=== PATIENT | male | born 1950 | race Caucasian/White ===

== ENCOUNTER 2022-02-09 11:00 | Emergency (ER) | payer OTHER, MEDICARE, MEDICAID ==
[~2022-02-09] VITALS: Ht 170.2 cm; Wt 72.7 kg
[~2022-02-09 11:00] MED LIST: NO HOME MEDS
[2022-02-09 11:27] LABS: BASOPHILS % (AUTO) 0.5 % (0-1); EOSINOPHILS % (AUTO) 0.5 % (0-6); HEMATOCRIT 44.5 % (42.0-52.0); HEMOGLOBIN 15.3 g/dl (14.0-17.9); LYMPHOCYTES # (AUTO) 1.8 X10'3 (1.1-4.8); LYMPHOCYTES % (AUTO) 23.2 % (21-51); MEAN CORPUSCULAR HEMOGLOBIN 30.2 PG (27.0-31.0); MEAN CORPUSCULAR HGB CONC 34.5 g/dL (33.0-36.5); MEAN CORPUSCULAR VOLUME 87.7 FL (78-98); MEAN PLATELET VOLUME 8.5 FL (7.4-10.4); MONOCYTES # (AUTO) 0.6 X10'3 (0-0.9); MONOCYTES % (AUTO) 7.7 % (2-12); NEUTROPHILS # (AUTO) 5.4 X10'3 (1.8-7.7); NEUTROPHILS % (AUTO) 68.1 % (42-75); PLATELET COUNT 258 X10'3 (140-440); RED BLOOD COUNT 5.07 X10'6 (4.70-6.10); RED CELL DISTRIBUTION WIDTH 13.7 % (11.5-14.5); WHITE BLOOD COUNT 7.9 X10'3 (4.5-11.0)
[2022-02-09 11:43] LABS: ALANINE AMINOTRANSFERASE 33 U/L (12-78); ALKALINE PHOSPHATASE 73 IU/L (46-116); ANION GAP 10 (8-16); ASPARTATE AMINO TRANSFERASE 20 U/L (10-37); BILIRUBIN,TOTAL 0.7 MG/DL (0.1-1.0); BLOOD UREA NITROGEN 13 MG/DL (7-18); BUN/CREATININE RATIO 13.4 (5.4-32.0); CALCIUM 8.8 MG/DL (8.5-10.1); CHLORIDE 107 MMOL/L (99-107); CREATININE 0.97 MG/DL (0.60-1.10); ETHANOL < 0.010 GM/DL (0.0-0.010); GLUCOSE 99 MG/DL (70-104); POTASSIUM 4.2 MMOL/L (3.5-5.1); SODIUM 142 MMOL/L (135-145); TOTAL CARBON DIOXIDE 25.1 MMOL/L (24-32); TOTAL PROTEIN 7.9 G/DL (6.4-8.2); eGFR 77 ML/MIN
[2022-02-09 11:53] LABS: URINE AMPHETAMINE SCREEN NEGATIVE (Neg); URINE BARBITUATE SCREEN NEGATIVE (Neg); URINE BENZODIAZEPINES SCREEN NEGATIVE (Neg); URINE CANNABINOID SCREEN NEGATIVE (Neg); URINE COCAINE SCREEN NEGATIVE (Neg); URINE METHADONE SCREEN NEGATIVE (Neg); URINE OPIATE SCREEN NEGATIVE (Neg); URINE PHENCYCLIDINE SCREEN NEGATIVE (Neg)
--- NOTE | 2022-02-09 12:22 | NUR ---
PACKET FAXED TO [facility]
[2022-02-09 13:29] LABS: CLARITY,URINE CLOUDY (Clear); COLOR,URINE YELLOW (Yellow); GLUCOSE, URINE NEGATIVE (Neg); KETONES,URINE 40 mg/dl (Neg); LEUKOCYTE ESTERASE ,URINE NEGATIVE (Neg); NITRITES, URINE NEGATIVE (Neg); OCCULT BLOOD,URINE NEGATIVE (Neg); PROTEIN,URINE NEGATIVE (Neg); UROBILINOGEN,URINE 0.2 E.U/dL (0.2-1.0)
[2022-02-09 13:37] LABS: AMORPHOUS URATES 4+; BACTERIA,URINE NONE SEEN /HPF (Neg); MUCUS STRANDS NONE SEEN /LPF (Neg); RBC,URINE NONE SEEN /HPF (0-2); SQUAMOUS EPITHELIAL CELL,UR NONE SEEN /LPF (FEW); UA COLLECTION TYPE CLN CATCH MIDSTREAM; WBC,URINE NONE SEEN /HPF (0-4)
--- NOTE | 2022-02-09 13:45 | NUR ---
Received the patient from the ED to Bed 20 in Overflow. Patient Interview and 1:1 Patient Assessment completed.
--- NOTE | 2022-02-09 15:45 | NUR ---
Patient c/o of a headache of 7 out of "10" and was medicated with Tylenol. Patient sleeping in bed at this time.
[2022-02-09] MEDS ORDERED: acetaminophen 325mg tablet PO ONE (15:55)
--- NOTE | 2022-02-09 15:56 | NUR ---
Patient c/o headache to primary RN, SPoke with Dr. Rivera regarding this and a request by the patient for tylenol. Dr. Rivera gave verbal order for Tylenol 650 mg PO once now. RN aware of new order.
--- NOTE | 2022-02-09 16:02 | NUR ---
PT. SITTING ON THE EDGE OF BED CRYING. PT. STATES HE HAS A HEADACHE FOR THE PAST WEEK . THIS MACHINE SHOP SUPERVISOR OBTAINED ORDER FOR TYLENOL 650MG PO X 1 DOSE FOR PAIN. STAFF WILL CONTINUE TO MONITOR FOR SAFETY.
--- NOTE | 2022-02-09 16:30 | NUR ---
Patient states "My headache is better. It is now a 4 out of 10." Patient resting in bed and requesting to go to his car to get his hearing aid batteries out of his bag in his car. Informed the patient that Security was called to secure his car, and informed them that per Security, as long as his car is parked in a parking space, and his belongings secure inside, they will not attempt to open it and remove any of his personal items from the car. Patient again informed that if he could go out to his car at this time he would smoke a cigarette while he was out there. Informed the patient that no on could take him out to his car to retrieve his belongings or take the time to have him smoke a cigarette by his personal vehicle.
--- NOTE | 2022-02-09 17:25 | NUR ---
Gave report to [facility] prior to their visit with the patient. Informed staff member of patient interview and report from the ED at time of patient transfer to this unit. [facility] interviewing the patient now at his bedside.
--- NOTE | 2022-02-09 18:43 | NUR ---
Patient received on the unit sitting in bed in no obvious distress. Patient is speaking with mental health clinician. Patient is anxious and hyperverbal.Mental states that she will be putting a mental hold on patient.
--- NOTE | 2022-02-10 01:47 | NUR ---
PATIENT AWAKE AND MAKING FUNNY NOISE, WHEN ASK HIM IF HE IS OK,PATIENT STATES YES. NO IS IN NO OBVIOUS DISTRESS.
--- NOTE | 2022-02-10 03:57 | NUR ---
PATIENT CAME TO NURSING STATION AND SAYING HE IS FUSTRATED WITH HIS LIFE. PATIENT STATES THAT HIS LIFE SUCKS. PATIENT CAME VERY TALKATIVE.
--- NOTE | 2022-02-10 05:23 | NUR ---
PATIENT RESTING IN BED. NO OBVIOUS DISTRESS NOTED. OBSERVATION ONGOING
[2022-02-10 05:30] VITALS: BP 124/73
--- NOTE | 2022-02-10 06:23 | NUR ---
SPOKE WITH GONZÁLEZ FROM [facility], ACCEPTING MD DR. JUNIOR.
--- NOTE | 2022-02-10 06:25 | NUR ---
CALLED [facility] OFFICE TO UPDATE ON PT ACCEPTING STATUS, CALL FORWARDED TO VOICEMAIL. MSG LEFT TO RETURN CALL REGARDING PT ACCEPTENCE TO [facility], WILL ATTEMPT TO SPEAK WITH SOMEONE AROUND 7PM
--- NOTE | 2022-02-10 07:10 | NUR ---
PT REQUESTED TYLENOL FOR NICHOLE, RECEIVED PRN TYLENOL 650MG PO Q 6 HR PRN PAIN VERBAL ORDER FROM ED MD MARTINEZ.
[2022-02-10] MEDS ORDERED: acetaminophen 325mg tablet PO PRN (07:20)
--- NOTE | 2022-02-10 07:27 | NUR ---
SPOKE WITH BILL FROM [facility] AND UPDATED ON PT ACCEPTING STATUS. BILL TO CALL [facility] FOR FURTHER DETAILS AND ARRANGE TRANSPORT.
--- NOTE | 2022-02-10 07:50 | NUR ---
PT TO BE TRANSFERRED TO [facility]. RECEIVED REPORT FROM [facility] OFFICE THAT [facility] [employer] EXAMINER TO ARRIVE AROUND [phone]
--- NOTE | 2022-02-10 08:12 | NUR ---
GAVE NURSE TO NURSE REPORT TO MIR ROSE AT [facility].
== END 2022-02-10 09:56 ==
LOC: ER 11:00
DX: R45.851 Suicidal ideations (principal); Z20.822 Contact with and (suspected) exposure to COVID-19; F32.A Depression, unspecified; E78.00 Pure hypercholesterolemia, unspecified; F17.200 Nicotine dependence, unspecified, uncomplicated
CPT/HCPCS: 36415; 80053; 80305; 80320; 81001; 84443; 85025; 87635; 99285; C9803

== ENCOUNTER 2022-11-05 15:45 | Emergency (ER) | payer OTHER, MEDICARE ==
[~2022-11-05 15:45] MED LIST changes: +ARIP5TAB14 PO; +DIPH50CA36; +MELA5TAB12 PO; +MIRT-116 PO; -NO HOME MEDS; +ROSU10TA2 PO
== END 2022-11-05 18:19 | disposition left against medical advice (07) ==
LOC: ER 15:45
DX: R20.0 Anesthesia of skin (principal); Z53.21 Procedure and treatment not carried out due to patient leaving prior to being seen by health care provider

== ENCOUNTER 2022-11-07 17:09 | Inpatient (IN) | payer OTHER, MEDICARE ==
[~2022-11-07] VITALS: Ht 170.2 cm; Wt 77.6 kg
[2022-11-07 18:33] LABS: CLARITY,URINE CLOUDY (Clear); COLOR,URINE YELLOW (Yellow); GLUCOSE, URINE NEGATIVE (Neg); KETONES,URINE 15 mg/dl (Neg); LEUKOCYTE ESTERASE ,URINE NEGATIVE (Neg); NITRITES, URINE NEGATIVE (Neg); OCCULT BLOOD,URINE NEGATIVE (Neg); PROTEIN,URINE NEGATIVE (Neg)
[2022-11-07 18:39] LABS: UA COLLECTION TYPE CLN CATCH MIDSTREAM
[2022-11-07 18:42] LABS: BACTERIA,URINE FEW /HPF (Neg); RBC,URINE 0-2 /HPF (0-2); SQUAMOUS EPITHELIAL CELL,UR FEW /LPF (FEW); WBC,URINE 0-4 /HPF (0-4)
[2022-11-07 18:43] LABS: AMORPHOUS PHOSPHATES 4+
[2022-11-07 18:49] LABS: URINE AMPHETAMINE SCREEN NEGATIVE (Neg); URINE BARBITUATE SCREEN NEGATIVE (Neg); URINE BENZODIAZEPINES SCREEN NEGATIVE (Neg); URINE CANNABINOID SCREEN NEGATIVE (Neg); URINE COCAINE SCREEN NEGATIVE (Neg); URINE METHADONE SCREEN NEGATIVE (Neg); URINE OPIATE SCREEN NEGATIVE (Neg); URINE PHENCYCLIDINE SCREEN NEGATIVE (Neg)
[2022-11-07 19:04] LABS: BASOPHILS % (AUTO) 0.4 % (0-1); EOSINOPHILS # (AUTO) 0.1 X10'3 (0-0.9); EOSINOPHILS % (AUTO) 0.7 % (0-6); HEMATOCRIT 45.1 % (42.0-52.0); LYMPHOCYTES # (AUTO) 1.9 X10'3 (1.1-4.8); LYMPHOCYTES % (AUTO) 23.7 % (21-51); MEAN CORPUSCULAR HGB CONC 33.3 g/dL (33.0-36.5); MEAN CORPUSCULAR VOLUME 90.1 FL (78-98); MEAN PLATELET VOLUME 9.2 FL (7.4-10.4); MONOCYTES # (AUTO) 0.6 X10'3 (0-0.9); MONOCYTES % (AUTO) 7.5 % (2-12); NEUTROPHILS # (AUTO) 5.5 X10'3 (1.8-7.7); NEUTROPHILS % (AUTO) 67.7 % (42-75); PLATELET COUNT 271 X10'3 (140-440); RED BLOOD COUNT 5.01 X10'6 (4.70-6.10); RED CELL DISTRIBUTION WIDTH 14.2 % (11.5-14.5); WHITE BLOOD COUNT 8.1 X10'3 (4.5-11.0)
[2022-11-07 19:13] LABS: ALANINE AMINOTRANSFERASE 31 U/L (12-78); ALBUMIN 3.8 G/DL (3.4-5.0); ALBUMIN/GLOBULIN RATIO 1.1 (1.1-1.5); ALKALINE PHOSPHATASE 84 IU/L (46-116); ANION GAP 11 (8-16); ASPARTATE AMINO TRANSFERASE 20 U/L (10-37); BILIRUBIN,TOTAL 0.3 MG/DL (0.1-1.0); BLOOD UREA NITROGEN 19 MG/DL (7-18); BUN/CREATININE RATIO 17.6 (5.4-32.0); CHLORIDE 105 MMOL/L (99-107); CREATININE 1.08 MG/DL (0.60-1.10); GLUCOSE 93 MG/DL (70-104); POTASSIUM 3.9 MMOL/L (3.5-5.1); SODIUM 139 MMOL/L (135-145); TOTAL CARBON DIOXIDE 22.8 MMOL/L (24-32); TOTAL PROTEIN 7.3 G/DL (6.4-8.2); eGFR 68 ML/MIN
[2022-11-07 19:23] LABS: ETHANOL < 0.010 GM/DL (0.0-0.010)
[2022-11-07] MEDS ORDERED: acetaminophen 325mg tablet PO ONE (19:40)
[2022-11-07] MEDS: LORazepam 1 MG tablet PO PRN (19:56)
[2022-11-07] MEDS ORDERED: ROSU5TAB PO (20:11)
[2022-11-07] MEDS ORDERED: AMLO5TAB4 PO (20:11)
[2022-11-07] MEDS ORDERED: SERT100T PO (20:11)
[2022-11-07] MEDS ORDERED: MULT-381 PO (20:11)
[2022-11-07] MEDS ORDERED: PRAZ1CAP5 PO (20:11)
[2022-11-07] MEDS ORDERED: QUET50TA PO (20:11)
--- NOTE | 2022-11-07 20:40 | NUR ---
The patient moved to bed 20 to the ER overflow from bed 10. He was cooperative with the move. He complained of high anxiety and a headache and Johana SOTO made aware and orders received. The patient reports that he wants to and he has been having suicidal thoughts. He reports decreased ability to sleep, increased suicidal thoughts, increased anxiety, increasing difficulty to focus. He denies psychotic symptoms.
[2022-11-07] MEDS: prazosin 1mg capsule PO SCH (20:49)
[2022-11-07] MEDS: QUEtiapine 25mg tablet PO SCH (20:49)
[2022-11-07] MEDS ORDERED: atorvastatin 20mg tablet PO SCH (21:00)
--- NOTE | 2022-11-07 21:42 | NUR ---
The patient is resting on his bed.
--- NOTE | 2022-11-07 21:47 | NUR ---
PACKET SENT TO [facility]
--- NOTE | 2022-11-08 00:13 | NUR ---
The patient appears to be sleeping
--- NOTE | 2022-11-08 01:35 | NUR ---
The patient appears to be sleeping
--- NOTE | 2022-11-08 03:41 | NUR ---
The patient appears to be sleeping
--- NOTE | 2022-11-08 05:08 | NUR ---
The patient appears to be sleeping
--- NOTE | 2022-11-08 07:02 | NUR ---
Received report from MIR Roy. Pt resting with eyes closed in bed, appears to be sleeping. Noted rise and fall of chest. No distress noted.
[2022-11-08] MEDS: sertraline 50mg tablet PO SCH (08:39)
[2022-11-08] MEDS: multivitamins, therapeutics tablet PO SCH (08:40)
[2022-11-08] MEDS: amLODIPine 5mg tablet PO SCH (08:40)
--- NOTE | 2022-11-08 08:41 | NUR ---
RN requested tech to retake pt vitals before giving medications. HR87, 126/89, 97%.
--- NOTE | 2022-11-08 09:05 | NUR ---
1:1 done at bedside, medications administered. Pt continues to having feelings of hopelessness/suicide. States he feels safe when he is here but not when he is at home. He states he has been dealing with a bad situation and has been unable to cope with it. Pt did not clarify the exact situation.
[2022-11-08] MEDS: ROSUVASTATIN CALCIUM 5 MG TABLET PO SCH (09:11)
[2022-11-08] MEDS: LORazepam 1 MG tablet PO PRN ×2 (10:46→16:32)
--- NOTE | 2022-11-08 10:47 | NUR ---
Pt approached nurse stating, "im going through some stuff and have bad anxiety and just want to fall asleep and not wake up." PRN ativan administered per pt request.
--- NOTE | 2022-11-08 11:32 | NUR ---
Pt sleeping, noted rise and fall of chest.
--- NOTE | 2022-11-08 11:50 | NUR ---
Pt being seen by [facility].
--- NOTE | 2022-11-08 12:21 | NUR ---
Pt. sitting up, eating breakfast at bedside. Addendum: 11/08/22 at 1309 by [email or web address] eating lunch.
--- NOTE | 2022-11-08 13:09 | NUR ---
Pt resting quietly in bed with eyes closed. Noted rise and fall of chest.
--- NOTE | 2022-11-08 15:13 | NUR ---
Pt approached nurses station requesting prn for anxiety. Pt was told he can have his next ativan at 445pm. Pt was okay with this and returned to bed. He continues to rest quietly with eyes closed on bed.
--- NOTE | 2022-11-08 15:35 | NUR ---
Admission Note: Pt. was admitted from the ER accompanied by Perry and security. Safety check was completed and belongings were inventoried by Perry Matamoros. Pt. is on a 5150 for DTS. Per 5150: Pt. states he is visualizing cutting his wrists with a knife and plans to cut his wrists tonight. He states, "Fighting all day, I can't keep fighting." Pt. reports multiple past suicide attempts by hanging and overdose. Pt. is a patient of the [facility] and called making suicidal statements. Addendum: 11/08/22 at 1724 by Marcia Simon RN Pt. scores as a high suicide risk according to the [place] Suicide Risk Assessment, however he is able to contract for safety while on the unit. This was endorsed to Dr. Lay and Q 15min safety checks were ordered.
--- NOTE | 2022-11-08 15:40 | NUR ---
Pt discharged to [facility], pt ambulated with tech and security. Belongings given to tech.
[2022-11-08] MEDS ORDERED: NICOTINE POLACRILEX 2 MG LOZENGE BC PRN (15:45)
[2022-11-08] MEDS ORDERED: acetaminophen 325mg tablet PO PRN (15:45)
[2022-11-08] MEDS ORDERED: magnesium hydroxide 30ml (MOM) UD suspension PO PRN (15:45)
[2022-11-08] MEDS ORDERED: loperamide 2mg capsule PO PRN (15:45)
[2022-11-08] MEDS ORDERED: mag hydrox/Alum hydrox/simeth 30ml oral suspension PO PRN (15:45)
[2022-11-08 15:54] VITALS: BP 129/80
[2022-11-08] MEDS: acetaminophen 325mg tablet PO PRN (16:32)
[2022-11-08] MEDS ORDERED: BUSP10TA11 PO (17:35)
[2022-11-08 19:00] VITALS: BP 124/82
[2022-11-08] MEDS: QUEtiapine 25mg tablet PO SCH (21:00)
[2022-11-08] MEDS: busPIRone 15mg tablet PO SCH (21:00)
[2022-11-08] MEDS: prazosin 1mg capsule PO SCH (21:00)
--- NOTE | 2022-11-09 04:23 | NUR ---
Nursing Progress Note: Problem : Pt. was admitted from the ER; Pt. is on a 5150 for DTS. Per 5150: Pt. states he is visualizing cutting his wrists with a knife and plans to cut his wrists tonight. He states, "Fighting all day, I can't keep fighting." Pt. reports multiple past suicide attempts by hanging and overdose. [facility] and called making suicidal statements. Interventions : Maintained a safe and supportive environment, provided clear and simple instructions, monitored behaviors and need for intervention, and maintained Q 15min safety checks. Response : Patient is pleasant and cooperative with care; compliant with medication. Patient appears depressed; +SI with a plan to cut his wrists. No apparent delusions expressed. Patient retired to bed early in the shift; observed sleeping and does not appear to be having difficulty. Plan : Patient requires interruption of current crisis and medication adjustment in a safe and therapeutic environment.
[2022-11-09 07:38] VITALS: BP 122/72
[2022-11-09] MEDS: sertraline 50mg tablet PO SCH (08:49)
[2022-11-09] MEDS: busPIRone 15mg tablet PO SCH ×3 (08:50→20:04)
[2022-11-09] MEDS: amLODIPine 5mg tablet PO SCH (08:50)
[2022-11-09] MEDS: multivitamins, therapeutics tablet PO SCH (08:50)
[2022-11-09] MEDS: nicotine 21mg patch - 24 hr TD SCH (08:51)
[2022-11-09] MEDS: ROSUVASTATIN CALCIUM 5 MG TABLET PO SCH (08:51)
[2022-11-09 10:37] LABS: CHOL/HDL RATIO 2.6 (0.00-4.99); CHOLESTEROL 103 MG/DL (0-200); HDL CHOLESTEROL 40 MG/DL (35-60); LDL CHOLESTEROL 53 MG/DL (50-100); TRIGLYCERIDES 69 MG/DL (20-135)
[2022-11-09] MEDS: LORazepam 1 MG tablet PO PRN (10:49)
[2022-11-09 11:23] LABS: HEMOGLOBIN A1C 6.2 % (4.5-6.2)
[2022-11-09] MEDS: diphenhydrAMINE 25mg capsule PO PRN (16:56)
[2022-11-09] MEDS: acetaminophen 325mg tablet PO PRN (16:57)
--- NOTE | 2022-11-09 16:59 | NUR ---
Nursing Progress Note: Problem : Pt. was admitted from the ER; Pt. is on a 5150 for DTS. Per 5150: Pt. states he is visualizing cutting his wrists with a knife and plans to cut his wrists tonight. He states, "Fighting all day, I can't keep fighting." Pt. reports multiple past suicide attempts by hanging and overdose. [facility] and called making suicidal statements. Interventions : Maintained a safe and supportive environment, ensured contract for safety, provided clear and simple instructions, provided active listening and positive encouragement, and maintained Q 15min safety checks. Response : Received pt. sleeping in bed at the beginning of the shift, he was awoken by staff to attend breakfast in the Group Room. Afterwards, pt. retreated back to bed and 1:1 was completed at bedside, pt. presents as cooperative, anxious, guarded, and withdrawn. He exhibits tremors in his bilateral upper extremities which he states are chronic in nature. Pt. currently denies any S/I while on the unit, however states, "'But if I went home, I don't know." He later requested PRN Ativan for anxiety with effectiveness. Pt. isolated in his room throughout the shift, getting up only to attend meals. In the afternoon, PRN Tylenol was administered for a headache along with PRN Benadryl r/t anxiety. Pt's PRN Ativan was changed to Benadryl per Dr. Lay as this is what pt. reports he is prescribed at the [facility] for anxiety. Plan : Pt. requires interruption of current crisis, medication adjustments, and a safe and supportive environment.
[2022-11-09 19:50] VITALS: BP 113/72
[2022-11-09] MEDS: prazosin 1mg capsule PO SCH (20:04)
[2022-11-09] MEDS: QUEtiapine 25mg tablet PO SCH (20:04)
[2022-11-10] MEDS: diphenhydrAMINE 25mg capsule PO PRN ×3 (01:06→17:13)
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
[2022-11-10 08:00] VITALS: BP 117/68
[2022-11-10] MEDS: multivitamins, therapeutics tablet PO SCH (08:23)
[2022-11-10] MEDS: sertraline 50mg tablet PO SCH (08:23)
[2022-11-10] MEDS: nicotine 21mg patch - 24 hr TD SCH (08:24)
[2022-11-10] MEDS: busPIRone 15mg tablet PO SCH ×3 (08:24→20:39)
[2022-11-10] MEDS: ROSUVASTATIN CALCIUM 5 MG TABLET PO SCH (08:24)
[2022-11-10] MEDS: amLODIPine 5mg tablet PO SCH (08:25)
[2022-11-10] MEDS: acetaminophen 325mg tablet PO PRN ×2 (11:59→17:15)
--- NOTE | 2022-11-10 17:33 | NUR ---
Nursing Progress Note: Buster Problem : Pt. was admitted from the ER; Pt. is on a 5150 for DTS. Per 5150: Pt. states he is visualizing cutting his wrists with a knife and plans to cut his wrists tonight. He states, "Fighting all day, I can't keep fighting." Pt. reports multiple past suicide attempts by hanging and overdose. [facility] and called making suicidal statements. Interventions : Maintained a safe and supportive environment, ensured contract for safety, provided clear and simple instructions, provided active listening and positive encouragement, and maintained Q 15min safety checks. Response : Pt. received asleep and awoke to take his medications. Pt. endorses SI stating I had pills and a gun, but they took those so I will use a knife, thats how Ill do it He denies HI, AH, VH and also c/o Hx of enlarged prostate and current urinary frequency with scant urine, but no c/o dysuria; N.O Flomax Qday received, Pt. c/o anxiety X1 and received Benadryl with good results. Pt. ate all meals in the dining room with cohorts and socialized with others throughout shift. Pt. has good hygiene, hair is neatly brushed, and wearing unit scrubs. Plan : Pt. requires interruption of current crisis, medication adjustments, and a safe and supportive environment.
[2022-11-10 19:46] VITALS: BP 121/77
[2022-11-10] MEDS: prazosin 1mg capsule PO SCH (20:39)
[2022-11-10] MEDS: QUEtiapine 25mg tablet PO SCH (20:39)
[2022-11-10] MEDS: tamsulosin 0.4mg capsule PO SCH (20:39)
[2022-11-11] MEDS: diphenhydrAMINE 25mg capsule PO PRN ×3 (01:09→23:54)
--- NOTE | 2022-11-11 02:59 | NUR ---
Nursing Progress Note: Problem : Pt. was admitted from the ER; Pt. is on a 5150 for DTS. Per 5150: Pt. states he is visualizing cutting his wrists with a knife and plans to cut his wrists tonight. He states, "Fighting all day, I can't keep fighting." Pt. reports multiple past suicide attempts by hanging and overdose. [facility] and called making suicidal statements. Interventions : Maintained a safe and supportive environment, provided clear and simple instructions, monitored behaviors and need for intervention, and maintained Q 15min safety checks. Response : Patient is pleasant and cooperative with care; compliant with medication. PRN Benadryl provided. Nicotine patch removed. Patient reports increased thought of SI d/t family member being a staff member. Patient is was unable to be redirected and reports that is what keeps him up at night. Patient continued to explain that he predicted he'd be up thinking about it all night; he was isolative to his room throughout the shift. Observed having difficulty sleeping. Plan : Patient requires interruption of current crisis and medication adjustment in a safe and therapeutic environment.
[2022-11-11 08:00] VITALS: BP 116/76
[2022-11-11] MEDS: nicotine 21mg patch - 24 hr TD SCH (08:00)
[2022-11-11] MEDS: ROSUVASTATIN CALCIUM 5 MG TABLET PO SCH (08:14)
[2022-11-11] MEDS: busPIRone 15mg tablet PO SCH ×3 (08:14→20:36)
[2022-11-11] MEDS: sertraline 50mg tablet PO SCH (08:15)
[2022-11-11] MEDS: amLODIPine 5mg tablet PO SCH (08:15)
[2022-11-11] MEDS: multivitamins, therapeutics tablet PO SCH (08:15)
[2022-11-11] MEDS: acetaminophen 325mg tablet PO PRN ×2 (12:16→17:28)
--- NOTE | 2022-11-11 13:42 | NUR ---
Case Management Spoke with Evonne, CT case packer (ph# [phone]), and requested she cancel Buster's appt tomorrow at the [facility]. Sent requested notes to her as well. AZEEM Buenrostro
--- NOTE | 2022-11-11 13:55 | NUR ---
Case Management Vick reported he has an apartment he can return to upon discharge. He reported he wanted to "clear the air" and wanted clinical writer to let Dr Mari know that he lied when he saw him this morning. Vick reported he has not been sleeping and is still suicidal. Sleep assessment showed he slept 3.[address] Mari. AZEEM Buenrostro
--- NOTE | 2022-11-11 17:33 | NUR ---
Nursing Progress Note: Problem : Pt. was admitted from the ER; Pt. is on a 5150 for DTS. Per 5150: Pt. states he is visualizing cutting his wrists with a knife and plans to cut his wrists tonight. He states, "Fighting all day, I can't keep fighting." Pt. reports multiple past suicide attempts by hanging and overdose. [facility] and called making suicidal statements. Interventions : Maintained a safe and supportive environment, ensured contract for safety, provided clear and simple instructions, provided active listening and positive encouragement, and maintained Q 15min safety checks. Response : 1:1 done at bedside, medications administered. Pt denies SI/HI, A/VH. Pt. stating he is no longer having thoughts or feelings of suicide. At approx. 12:20pm he requested medication for a NICHOLE and Anxiety. Scheduled buspar administered with effective results and Tylenol with effective results. Pt spent the majority of the shift isolating in his room, resting in his bed. Pt did attend meals. Pt requested Tylenol again at 1730 for a NICHOLE, Tylenol administered and pt encouraged to increase his water intake. Pt was also concerned about being unable to sleep tonight. This nurse asked if he told the doctor he was unable to sleep last night and he stated, no, I lied, I told him I slept great because I wanted to get out of here. Pt encouraged to ask for his Benadryl with his scheduled bedtime medications and if he is unable to sleep to request this PRN again. Pt also encouraged to be honest with the psychiatrist here so he can get the proper help he needs. Plan : Pt. requires interruption of current crisis, medication adjustments, and a safe and supportive environment.
[2022-11-11 19:53] VITALS: BP 124/76
[2022-11-11] MEDS: prazosin 1mg capsule PO SCH (20:36)
[2022-11-11] MEDS: QUEtiapine 25mg tablet PO SCH (20:36)
[2022-11-11] MEDS: tamsulosin 0.4mg capsule PO SCH (20:36)
--- NOTE | 2022-11-12 04:33 | NUR ---
Nursing Progress Note: Problem : Pt. was admitted from the ER; Pt. is on a 5150 for DTS. Per 5150: Pt. states he is visualizing cutting his wrists with a knife and plans to cut his wrists tonight. He states, "Fighting all day, I can't keep fighting." Pt. reports multiple past suicide attempts by hanging and overdose. [facility] and called making suicidal statements. Interventions : Maintained a safe and supportive environment, provided clear and simple instructions, monitored behaviors and need for intervention, and maintained Q 15min safety checks. Response : Patient is pleasant and cooperative; compliant with medication. PRN Benadryl with repeat provided. Nicotine patch removed. Patient reports passive SI; "I was really hoping to go home and contemplate how today." He continues to appear paranoid. Patient isolative to his room; observed having difficulty sleeping. Plan : Patient requires interruption of current crisis and medication adjustment in a safe and therapeutic environment.
[2022-11-12 07:54] VITALS: BP 125/78
[2022-11-12] MEDS: ROSUVASTATIN CALCIUM 5 MG TABLET PO SCH (08:00)
[2022-11-12] MEDS: multivitamins, therapeutics tablet PO SCH (08:06)
[2022-11-12] MEDS: sertraline 50mg tablet PO SCH (08:06)
[2022-11-12] MEDS: amLODIPine 5mg tablet PO SCH (08:06)
[2022-11-12] MEDS: busPIRone 15mg tablet PO SCH ×3 (08:06→20:52)
[2022-11-12] MEDS: nicotine 21mg patch - 24 hr TD SCH (08:08)
--- NOTE | 2022-11-12 09:47 | NUR ---
Initial: Pt admit with depression and SI. Currently on a regular diet with slightly fluctuating PO intake however overall eating well with average 74% PO intake throughout LOS. Pt participating in snacks per hot dipper. [facility] 11/10, with PRN bowel care available. No nutrition intervention implemented at this time. Will continue to follow. Recommendations: 1) Continue regular diet 2) Bowel care PRN 3) Weekly scaled weights Addendum: 11/12/22 at [address] Amended: Links added.
[2022-11-12] MEDS: diphenhydrAMINE 25mg capsule PO PRN ×2 (11:25→15:49)
[2022-11-12] MEDS: acetaminophen 325mg tablet PO PRN (17:14)
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
[2022-11-12 19:55] VITALS: BP 124/82
[2022-11-12] MEDS: quetiapine 100mg tablet PO SCH (20:52)
[2022-11-12] MEDS: prazosin 1mg capsule PO SCH (20:52)
[2022-11-12] MEDS: tamsulosin 0.4mg capsule PO SCH (20:52)
--- NOTE | 2022-11-13 02:41 | NUR ---
Nursing Progress Note: Problem : Pt. was admitted from the ER; Pt. is on a 5150 for DTS. Per 5150: Pt. states he is visualizing cutting his wrists with a knife and plans to cut his wrists tonight. He states, "Fighting all day, I can't keep fighting." Pt. reports multiple past suicide attempts by hanging and overdose. [facility] and called making suicidal statements. Interventions : Maintained a safe and supportive environment, provided clear and simple instructions, monitored behaviors and need for intervention, and maintained Q 15min safety checks. Response : Patient is pleasant and cooperative with care; compliant with medication. Quetiapine increased to 100mg HS this shift; no ASE observed. Nicotine patch removed. Patient denies SI, HI, A/VH; no apparent delusions expressed. Patient self isolated to his room; observed sleeping without apparent difficulties. Plan : Patient requires interruption of current crisis and medication adjustment in a safe and therapeutic environment.
[2022-11-13 07:29] VITALS: BP 116/73
[2022-11-13] MEDS: QUEtiapine 25mg tablet PO SCH ×2 (07:47→12:54)
[2022-11-13] MEDS: amLODIPine 5mg tablet PO SCH (07:47)
[2022-11-13] MEDS: busPIRone 15mg tablet PO SCH ×3 (07:47→21:13)
[2022-11-13] MEDS: nicotine 21mg patch - 24 hr TD SCH (07:48)
[2022-11-13] MEDS: sertraline 50mg tablet PO SCH (07:48)
[2022-11-13] MEDS: multivitamins, therapeutics tablet PO SCH (07:50)
[2022-11-13] MEDS: ROSUVASTATIN CALCIUM 5 MG TABLET PO SCH (10:25)
--- NOTE | 2022-11-13 16:46 | NUR ---
Nursing Progress Note: Buster Problem: Pt. was admitted from the ER; Pt. is on a 5150 for DTS. Per 5150: Pt. states he is visualizing cutting his wrists with a knife and plans to cut his wrists tonight. He states, "Fighting all day, I can't keep fighting." Pt. reports multiple past suicide attempts by hanging and overdose. [facility] and called making suicidal statements. Interventions: Maintained a safe and supportive environment, ensured contract for safety, provided clear and simple instructions, provided active listening and positive encouragement, and maintained Q 15min safety checks. Response: Pt. received asleep and awoke to take his medications. Pt. denies SI, HI, AH, VH, and reports I feel great he also stated he slept well last night. He attended group this morning and stayed in community room to socialize with cohorts afterward. Pt. ate all meals in the dining room, and did not c/o anxiety this shift. Pt. has fair hygiene, stubbly kincaid and is wearing unit scrubs. Plan: Pt. requires interruption of current crisis, medication adjustments, and a safe and supportive environment.
[2022-11-13] MEDS: diphenhydrAMINE 25mg capsule PO PRN (19:08)
[2022-11-13 19:38] VITALS: BP 148/88
[2022-11-13] MEDS: prazosin 1mg capsule PO SCH (21:13)
[2022-11-13] MEDS: tamsulosin 0.4mg capsule PO SCH (21:13)
[2022-11-13] MEDS: quetiapine 100mg tablet PO SCH (21:13)
--- NOTE | 2022-11-14 02:34 | NUR ---
Nursing Progress Note: Problem : Pt. was admitted from the ER; Pt. is on a 5150 for DTS. Per 5150: Pt. states he is visualizing cutting his wrists with a knife and plans to cut his wrists tonight. He states, "Fighting all day, I can't keep fighting." Pt. reports multiple past suicide attempts by hanging and overdose. [facility] and called making suicidal statements. Interventions : Maintained a safe and supportive environment, provided clear and simple instructions, monitored behaviors and need for intervention, and maintained Q 15min safety checks. Response : Patient is pleasant and cooperative with care; compliant with medication. PRN Benadryl provided. Nicotine patch removed. Patient explained he'll "always have the intrusive thoughts [SI] but no longer feeling the urge to do it." Denies HI, A/VH. Patient expressed he got peace of mind with relative that works on the floor reassuring him his information is private. He appeared cheerful and bright this shift. Patient retired to bed early; observed sleeping with no apparent difficulties. Plan : Patient requires interruption of current crisis and medication adjustment in a safe and therapeutic environment.
[2022-11-14 07:30] VITALS: BP 112/71
[2022-11-14] MEDS: QUEtiapine 25mg tablet PO SCH ×2 (08:15→12:22)
[2022-11-14] MEDS: nicotine 21mg patch - 24 hr TD SCH (08:15)
[2022-11-14] MEDS: amLODIPine 5mg tablet PO SCH (08:16)
[2022-11-14] MEDS: ROSUVASTATIN CALCIUM 5 MG TABLET PO SCH (08:16)
[2022-11-14] MEDS: busPIRone 15mg tablet PO SCH ×3 (08:16→20:49)
[2022-11-14] MEDS: multivitamins, therapeutics tablet PO SCH (08:17)
[2022-11-14] MEDS: sertraline 50mg tablet PO SCH (08:17)
--- NOTE | 2022-11-14 09:54 | NUR ---
Met with Vick and he reported he is feeling better. He reported he slept well the last two nights. He denied any current SI. He reported he lives alone and can return to his apartment. He reported he went to group yesterday. Encouraged him to go to group today as well. WANDER Douglass (ph# [phone]), called for an update. Informed her of Vick's progress. She will check in again tomorrow. Will discuss ETA for discharge with Dr Jess retana. AZEEM Buenrostro
--- NOTE | 2022-11-14 13:37 | NUR ---
5250 upheld for DTS
[2022-11-14] MEDS: diphenhydrAMINE 25mg capsule PO PRN (16:14)
[2022-11-14] MEDS: acetaminophen 325mg tablet PO PRN (16:15)
--- NOTE | 2022-11-14 17:16 | NUR ---
Nursing Note Problem: Pt. was admitted from the ER; Pt. is on a 5150 for DTS. Per 5150: Pt. states he is visualizing cutting his wrists with a knife and plans to cut his wrists tonight. He states, "Fighting all day, I can't keep fighting." Pt. reports multiple past suicide attempts by hanging and overdose. [facility] and [facility] making [facility] statements. Interventions: Maintained a safe and supportive environment, ensured contract for safety, provided clear and simple instructions, provided active listening and positive encouragement, and maintained Q 15min safety checks. Response: Pt. received asleep and took medication in community room during breakfast. Pt. denies SI, HI, AH, VH, stating I feel much better. Pt. ate all meals in the dining room, and did not c/o anxiety in AM. Pt had hearing today, and was upset d/t hearing chart notes read out loud. Pt spoke with MD, pt expressed decreased anxiety after conversation. Pt ate lunch in community room, after initially refusing. Pt napped for most of afternoon/early evening. PRN Benadryl/Tylenol given 1615 with good effect. Pt. has fair hygiene, stubbly kincaid and is wearing unit scrubs. Plan: Pt. requires interruption of current crisis, medication adjustments, and a safe and supportive environment.
[2022-11-14 19:00] VITALS: BP 126/74
[2022-11-14] MEDS: tamsulosin 0.4mg capsule PO SCH (20:48)
[2022-11-14] MEDS: prazosin 1mg capsule PO SCH (20:49)
[2022-11-14] MEDS: quetiapine 100mg tablet PO SCH (20:49)
[2022-11-15] MEDS: QUEtiapine 25mg tablet PO PRN (02:24)
--- NOTE | 2022-11-15 06:00 | NUR ---
Nursing Progress Note: Problem : Pt. was admitted from the ER; Pt. is on a 5150 for DTS. Per 5150: Pt. states he is visualizing cutting his wrists with a knife and plans to cut his wrists tonight. He states, "Fighting all day, I can't keep fighting." Pt. reports multiple past suicide attempts by hanging and overdose. [facility] and called making suicidal statements. Interventions : Maintained a safe and supportive environment, provided clear and simple instructions, monitored behaviors and need for intervention, and maintained Q 15min safety checks. Response : Patient is pleasant and cooperative with care; compliant with medication. PRN Quetiapine provided and Nicotine patch removed. Patient denies SI, HI, A/VH; no apparent delusions expressed. Patient mostly isolated to his room this shift; only comes out to request medication. Patient observed sleeping with some interruption. Plan : Patient requires interruption of current crisis and medication adjustment in a safe and therapeutic environment.
[2022-11-15] MEDS: busPIRone 15mg tablet PO SCH ×3 (07:34→20:27)
[2022-11-15] MEDS: amLODIPine 5mg tablet PO SCH (07:34)
[2022-11-15] MEDS: QUEtiapine 25mg tablet PO SCH ×2 (07:36→12:47)
[2022-11-15] MEDS: multivitamins, therapeutics tablet PO SCH (07:36)
[2022-11-15] MEDS: sertraline 50mg tablet PO SCH (07:37)
[2022-11-15] MEDS: nicotine 21mg patch - 24 hr TD SCH (07:38)
[2022-11-15 08:35] VITALS: BP 119/70
[2022-11-15] MEDS: ROSUVASTATIN CALCIUM 5 MG TABLET PO SCH (08:41)
--- NOTE | 2022-11-15 17:17 | NUR ---
Nursing Note Problem: Pt. was admitted from the ER; Pt. is on a 5150 for DTS. Per 5150: Pt. states he is visualizing cutting his wrists with a knife and plans to cut his wrists tonight. He states, "Fighting all day, I can't keep fighting." Pt. reports multiple past suicide attempts by hanging and overdose. [facility] and called making suicidal statements. Interventions: Maintained a safe and supportive environment, ensured contract for safety, provided clear and simple instructions, provided active listening and positive encouragement, and maintained Q 15min safety checks. Response: received patient asleep. Patient seen by medical doctor at 0730 during medication pass. He took all oral meds without hesitation. Refused habitrol patch this morning 11/15/22. Patient denies thoughts of SI, AH, and VH . Patient did not want to eat breakfast this morning. He has been in his room sleeping. 1130 patient seen walking down the [place] with blanket over shoulder and asked for coffee. 1145 patient seen sitting quietly in rec room watching TV alone. Observed patient heading to community room for lunch. Overall patient was pleasant, quiet and interacting. Plan: Pt. requires interruption of current crisis, medication adjustments, and a safe and supportive environment.
[2022-11-15] MEDS: diphenhydrAMINE 25mg capsule PO PRN (17:39)
[2022-11-15 19:42] VITALS: BP 130/76
[2022-11-15] MEDS: tamsulosin 0.4mg capsule PO SCH (20:27)
[2022-11-15] MEDS: prazosin 1mg capsule PO SCH (20:27)
[2022-11-15] MEDS: quetiapine 100mg tablet PO SCH (20:27)
--- NOTE | 2022-11-16 05:24 | NUR ---
Nursing Progress Note: Problem : Pt. was admitted from the ER; Pt. is on a 5150 for DTS. Per 5150: Pt. states he is visualizing cutting his wrists with a knife and plans to cut his wrists tonight. He states, "Fighting all day, I can't keep fighting." Pt. reports multiple past suicide attempts by hanging and overdose. [facility] and called making suicidal statements. Interventions : Maintained a safe and supportive environment, provided clear and simple instructions, monitored behaviors and need for intervention, and maintained Q 15min safety checks. Response : Patient is pleasant and cooperative with care; compliant with medication. He continues to deny SI, HI, A/VH; no apparent delusions expressed. Patient mostly isolative to room; provided HS snack prior to bed; observed sleeping and does not appear to be having difficulty. Plan : Patient requires interruption of current crisis and medication adjustment in a safe and therapeutic environment.
[2022-11-16] MEDS: ROSUVASTATIN CALCIUM 5 MG TABLET PO SCH (07:39)
[2022-11-16] MEDS: amLODIPine 5mg tablet PO SCH (07:39)
[2022-11-16] MEDS: sertraline 50mg tablet PO SCH (07:39)
[2022-11-16] MEDS: QUEtiapine 25mg tablet PO SCH ×2 (07:39→12:47)
[2022-11-16] MEDS: busPIRone 15mg tablet PO SCH ×3 (07:40→21:01)
[2022-11-16] MEDS: multivitamins, therapeutics tablet PO SCH (07:40)
[2022-11-16] MEDS: nicotine 21mg patch - 24 hr TD SCH (07:40)
[2022-11-16 08:29] VITALS: BP 117/69
[2022-11-16] MEDS: diphenhydrAMINE 25mg capsule PO PRN ×2 (15:24→23:26)
--- NOTE | 2022-11-16 17:29 | NUR ---
Nursing Progress Note: Problem : Pt. was admitted from the ER; Pt. is on a 5150 for DTS. Per 5150: Pt. states he is visualizing cutting his wrists with a knife and plans to cut his wrists tonight. He states, "Fighting all day, I can't keep fighting." Pt. reports multiple past suicide attempts by hanging and overdose. [facility] and called making suicidal statements. Interventions : Maintained a safe and supportive environment, provided clear and simple instructions, monitored behaviors and need for intervention, and maintained Q 15min safety checks. Response : Patient was up for breakfast, and was compliant with morning med pass. He heads back to his room where he is happy to isolate. Patient is calm, cooperative, but quiet. He is not known to socialize with his peers when in the community room. Patients mood is good and affect is bright. He continues to wait for placement. Plan : Patient requires interruption of current crisis and medication adjustment in a safe and therapeutic environment.
[2022-11-16 19:00] VITALS: BP 132/75
[2022-11-16] MEDS: prazosin 1mg capsule PO SCH (21:01)
[2022-11-16] MEDS: tamsulosin 0.4mg capsule PO SCH (21:01)
[2022-11-16] MEDS: quetiapine 100mg tablet PO SCH (21:01)
[2022-11-16] MEDS: QUEtiapine 25mg tablet PO PRN (23:26)
--- NOTE | 2022-11-17 03:14 | NUR ---
Nursing Progress Note: Problem : Pt. was admitted from the ER; Pt. is on a 5150 for DTS. Per 5150: Pt. states he is visualizing cutting his wrists with a knife and plans to cut his wrists tonight. He states, "Fighting all day, I can't keep fighting." Pt. reports multiple past suicide attempts by hanging and overdose. [facility] and called making suicidal statements. Interventions : Maintained a safe and supportive environment, provided clear and simple instructions, monitored behaviors and need for intervention, and maintained Q 15min safety checks. Response : Patient is pleasant and cooperative with care; compliant with medication. PRNs Quetiapine and Benadryl provided. He denies MH Sx but later reported increased anxiety and difficulty sleeping d/t "thoughts." Patient did not elaborate on his "thoughts." He briefly participated in HS snack prior to bed; observed sleeping and does not appear to be having difficulty. Plan : Patient requires interruption of current crisis and medication adjustment in a safe and therapeutic environment.
[2022-11-17 08:00] VITALS: BP 127/73
[2022-11-17] MEDS: QUEtiapine 25mg tablet PO SCH ×2 (08:15→12:54)
[2022-11-17] MEDS: busPIRone 15mg tablet PO SCH ×3 (08:15→21:00)
[2022-11-17] MEDS: multivitamins, therapeutics tablet PO SCH (08:16)
[2022-11-17] MEDS: ROSUVASTATIN CALCIUM 5 MG TABLET PO SCH (08:16)
[2022-11-17] MEDS: sertraline 50mg tablet PO SCH (08:16)
[2022-11-17] MEDS: amLODIPine 5mg tablet PO SCH (08:16)
[2022-11-17] MEDS: nicotine 21mg patch - 24 hr TD SCH (08:17)
--- NOTE | 2022-11-17 17:46 | NUR ---
Nursing Note Problem: Pt. was admitted from the ER; Pt. is on a 5150 for DTS. Per 5150: Pt. states he is visualizing cutting his wrists with a knife and plans to cut his wrists tonight. He states, "Fighting all day, I can't keep fighting." Pt. reports multiple past suicide attempts by hanging and overdose. [facility] and called making suicidal statements. Interventions: Maintained a safe and supportive environment, ensured contract for safety, provided clear and simple instructions, provided active listening and positive encouragement, and maintained Q 15min safety checks. Response: Received patient sleeping in bed at change of shift. Patient attends all meals in the group room, then retreats to his room and self-isolates. Patient denies all psychotic symptoms. Patient takes medications as directed. Patient is pleasant and compliant with treatment. Plan: Pt. requires interruption of current crisis, medication adjustments, and a safe and supportive environment.
[2022-11-17 19:53] VITALS: BP 123/73
[2022-11-17] MEDS: prazosin 1mg capsule PO SCH (21:00)
[2022-11-17] MEDS: tamsulosin 0.4mg capsule PO SCH (21:00)
[2022-11-17] MEDS: quetiapine 100mg tablet PO SCH (21:01)
[2022-11-17] MEDS: QUEtiapine 25mg tablet PO PRN (22:16)
[2022-11-17] MEDS: diphenhydrAMINE 25mg capsule PO PRN (22:16)
--- NOTE | 2022-11-18 05:12 | NUR ---
Nursing Progress Note: Problem : Pt. was admitted from the ER; Pt. is on a 5150 for DTS. Per 5150: Pt. states he is visualizing cutting his wrists with a knife and plans to cut his wrists tonight. He states, "Fighting all day, I can't keep fighting." Pt. reports multiple past suicide attempts by hanging and overdose. [facility] and called making suicidal statements. Interventions : Maintained a safe and supportive environment, provided clear and simple instructions, monitored behaviors and need for intervention, and maintained Q 15min safety checks. Response : Patient is irritable and guarded this shift; compliant with medication. PRN Quetiapine and Benadryl provided. He denied SI, HI, A/VH to process description writer but a peer reported he was explaining he was going to cheek medication, place it under his mattress and planned to OD when he had enough. Multimedia Authoring Specialist and PCT checked under his mattress (nothing found) and patient did not appear to cheek his medication. He was over heard crying in his room and refused to talk with process description writer. He's observed sleeping and does not appear to be having difficulty. Plan : Patient requires interruption of current crisis and medication adjustment in a safe and therapeutic environment.
[2022-11-18 07:30] VITALS: BP 119/68
[2022-11-18] MEDS: ROSUVASTATIN CALCIUM 5 MG TABLET PO SCH (08:20)
[2022-11-18] MEDS: QUEtiapine 25mg tablet PO SCH ×2 (08:20→12:10)
[2022-11-18] MEDS: amLODIPine 5mg tablet PO SCH (08:20)
[2022-11-18] MEDS: multivitamins, therapeutics tablet PO SCH (08:20)
[2022-11-18] MEDS: sertraline 50mg tablet PO SCH (08:20)
[2022-11-18] MEDS: busPIRone 15mg tablet PO SCH ×3 (08:20→21:00)
[2022-11-18] MEDS: diphenhydrAMINE 25mg capsule PO PRN (12:04)
--- NOTE | 2022-11-18 17:48 | NUR ---
Nursing Note Problem: Pt. was admitted from the ER; Pt. is on a 5150 for DTS. Per 5150: Pt. states he is visualizing cutting his wrists with a knife and plans to cut his wrists tonight. He states, "Fighting all day, I can't keep fighting." Pt. reports multiple past suicide attempts by hanging and overdose. [facility] and called making suicidal statements. Interventions: Maintained a safe and supportive environment, ensured contract for safety, provided clear and simple instructions, provided active listening and positive encouragement, and maintained Q 15min safety checks. Response: Received patient from CN @ 0336. Patient attends all meals in the group room, then retreats to his room and self-isolates. Patient denies all psychotic symptoms. HR RRR, LCTA, BS +4 quads, cap refill < 3 seconds, PERRLA, - Homans, denies SI/HI/AH/VH, denies depression, endorses some anxiety. Pt states he has improved since being admitted. States he thought he was going to DC today, but is unsure. Per MD, pt to DC 11/19/2022 after all f/u appointments are made. PRN Benadryl given for c/o anxiety at 1205. Patient takes medications as directed. Patient is pleasant and compliant with treatment. Plan: Pt. requires interruption of current crisis, medication adjustments, and a safe and supportive environment. Per MD, patient to DC 11/19/2022.
[2022-11-18 19:00] VITALS: BP 135/90
[2022-11-18] MEDS: tamsulosin 0.4mg capsule PO SCH (21:00)
[2022-11-18] MEDS: prazosin 1mg capsule PO SCH (21:00)
[2022-11-18] MEDS: quetiapine 100mg tablet PO SCH (21:00)
--- NOTE | 2022-11-19 04:29 | NUR ---
Nursing Progress Note: Problem : Pt. was admitted from the ER; Pt. is on a 5150 for DTS. Per 5150: Pt. states he is visualizing cutting his wrists with a knife and plans to cut his wrists tonight. He states, "Fighting all day, I can't keep fighting." Pt. reports multiple past suicide attempts by hanging and overdose. [facility] and called making suicidal statements. Interventions : Maintained a safe and supportive environment, provided clear and simple instructions, monitored behaviors and need for intervention, and maintained Q 15min safety checks. Response : Patient is guarded, real short with curriculum writer, but cooperative; compliant with medication. Patient denies SI, HI, A/VH; no apparent delusions expressed. Patient reports he is looking forward to discharge 11/19. He mostly self isolated to his room, received HS snack and promptly returned to bed; observed sleeping and does not appear to be having difficulty. Plan : Patient requires interruption of current crisis and medication adjustment in a safe and therapeutic environment.
--- NOTE | 2022-11-19 07:20 | NUR ---
Reassessment; pt continues on Regular diet w/ mostly 100% intake of meals recently, meeting est needs at this time. LB 11/17. No nutrition intervention implemented at this time, will continue to monitor. Recommendations: 1) Continue regular diet 2) Bowel care PRN 3) Weekly scaled weights Addendum: 11/19/22 at [address] Amended: Links added.
[2022-11-19 07:30] VITALS: BP 103/69
[2022-11-19] MEDS: QUEtiapine 25mg tablet PO SCH ×2 (07:45→12:26)
[2022-11-19] MEDS: busPIRone 15mg tablet PO SCH ×2 (07:45→12:26)
[2022-11-19] MEDS: ROSUVASTATIN CALCIUM 5 MG TABLET PO SCH (07:45)
[2022-11-19] MEDS: multivitamins, therapeutics tablet PO SCH (07:46)
[2022-11-19] MEDS: sertraline 50mg tablet PO SCH (07:46)
[2022-11-19] MEDS: amLODIPine 5mg tablet PO SCH (07:46)
[2022-11-19 08:00] VITALS: BP 103/69
[2022-11-19] MEDS ORDERED: QUET100T34 PO (13:28)
[2022-11-19] MEDS ORDERED: NOR5T PO (13:28)
[2022-11-19] MEDS ORDERED: ROSU5TAB PO (13:28)
[2022-11-19] MEDS ORDERED: NICO-907 BC (13:28)
[2022-11-19] MEDS ORDERED: SERT-433 PO (13:28)
[2022-11-19] MEDS ORDERED: PRAZ1CAP5 PO (13:28)
[2022-11-19] MEDS ORDERED: tamsulosin capsule PO (13:28)
[2022-11-19] MEDS ORDERED: MULT-25 PO (13:28)
[2022-11-19] MEDS ORDERED: BUSP15TA3 PO (13:28)
[2022-11-19] MEDS ORDERED: QUET25TA36 PO (13:29)
--- NOTE | 2022-11-19 14:45 | NUR ---
Discharge Note Pt discharged to home @ 1445. Escorted to lobby/taxi by security. Pt expressed understanding of discharge instructions, prescriptions, follow-up appointments scheduled, and mental health resources. All belongings accounted for and returned to pt.
== END 2022-11-19 14:45 | disposition home or self-care (01) | DRG 885 ==
LOC: ER 17:11 → ED HOLD 11-08 14:30 → ADULT MH 11-08 15:37
PROVIDERS: ADMIT Psychiatry & Neurology Psychiatry; ATTEND Psychiatry & Neurology Psychiatry
DX: F33.2 Major depressive disorder, recurrent severe without psychotic features (principal); R45.851 Suicidal ideations; E78.00 Pure hypercholesterolemia, unspecified; F17.210 Nicotine dependence, cigarettes, uncomplicated; F43.12 Post-traumatic stress disorder, chronic; Z20.822 Contact with and (suspected) exposure to COVID-19; F41.9 Anxiety disorder, unspecified; F60.7 Dependent personality disorder; I10 Essential (primary) hypertension; N40.0 Benign prostatic hyperplasia without lower urinary tract symptoms; Z79.899 Other long term (current) drug therapy; Z82.3 Family history of stroke; Z83.3 Family history of diabetes mellitus; Z71.6 Tobacco abuse counseling
CPT/HCPCS: 36415; 80053; 80061; 80305; 80320; 81001; 83036; 84443; 85025; 87081; 87811; 99285; Q0163

== ENCOUNTER 2022-11-20 20:25 | Emergency (ER) | payer OTHER, MEDICARE ==
[~2022-11-20] VITALS: Ht 170.2 cm; Wt 78.6 kg
[~2022-11-20 20:25] MED LIST changes: -ARIP5TAB14 PO; +BUSP15TA3 PO; -DIPH50CA36; -MELA5TAB12 PO; -MIRT-116 PO; +MULT-25 PO; +NICO-907 BC; +NOR5T PO; +PRAZ1CAP5 PO; +QUET100T34 PO; +QUET25TA36 PO; -ROSU10TA2 PO; +ROSU5TAB PO; +SERT-433 PO; +tamsulosin capsule PO
[2022-11-20 20:31] VITALS: BP 172/94
[2022-11-20 21:10] LABS: BASOPHILS % (AUTO) 0.3 % (0-1); EOSINOPHILS % (AUTO) 0.3 % (0-6); HEMATOCRIT 45.5 % (42.0-52.0); HEMOGLOBIN 15.2 g/dl (14.0-17.9); LYMPHOCYTES # (AUTO) 1.1 X10'3 (1.1-4.8); LYMPHOCYTES % (AUTO) 9.7 % (21-51); MEAN CORPUSCULAR HGB CONC 33.5 g/dL (33.0-36.5); MEAN CORPUSCULAR VOLUME 89.4 FL (78-98); MEAN PLATELET VOLUME 8.5 FL (7.4-10.4); MONOCYTES # (AUTO) 0.8 X10'3 (0-0.9); MONOCYTES % (AUTO) 7.5 % (2-12); NEUTROPHILS # (AUTO) 9.2 X10'3 (1.8-7.7); NEUTROPHILS % (AUTO) 82.2 % (42-75); PLATELET COUNT 249 X10'3 (140-440); RED BLOOD COUNT 5.09 X10'6 (4.70-6.10); RED CELL DISTRIBUTION WIDTH 14.1 % (11.5-14.5); WHITE BLOOD COUNT 11.2 X10'3 (4.5-11.0)
[2022-11-20 21:23] LABS: ALANINE AMINOTRANSFERASE 45 U/L (12-78); ALBUMIN 4.2 G/DL (3.4-5.0); ALBUMIN/GLOBULIN RATIO 1.2 (1.1-1.5); ALKALINE PHOSPHATASE 90 IU/L (46-116); ANION GAP 9 (8-16); ASPARTATE AMINO TRANSFERASE 25 U/L (10-37); BILIRUBIN,TOTAL 0.3 MG/DL (0.1-1.0); BLOOD UREA NITROGEN 14 MG/DL (7-18); BUN/CREATININE RATIO 11.5 (5.4-32.0); CALCIUM 9.2 MG/DL (8.5-10.1); CHLORIDE 105 MMOL/L (99-107); CREATININE 1.22 MG/DL (0.60-1.10); GLUCOSE 186 MG/DL (70-104); POTASSIUM 4.2 MMOL/L (3.5-5.1); SODIUM 143 MMOL/L (135-145); TOTAL PROTEIN 7.7 G/DL (6.4-8.2); eGFR 59 ML/MIN
[2022-11-20 21:27] LABS: ETHANOL < 0.010 GM/DL (0.0-0.010)
== END 2022-11-21 00:11 | disposition left against medical advice (07) ==
LOC: ER 20:25
DX: F29 Unspecified psychosis not due to a substance or known physiological condition (principal); Z20.822 Contact with and (suspected) exposure to COVID-19; Z53.21 Procedure and treatment not carried out due to patient leaving prior to being seen by health care provider
CPT/HCPCS: 36415; 80053; 80320; 85025; 87811

== ENCOUNTER 2023-03-17 15:49 | Emergency (ER) | payer OTHER, MEDICARE ==
[~2023-03-17] VITALS: Ht 170.2 cm; Wt 77.3 kg
--- NOTE | 2023-03-17 16:28 | NUR ---
ER registration came here to take patient's wallent with money, keys, paperwork.
--- NOTE | 2023-03-17 16:44 | NUR ---
Patient's own meds turned in to the hospital pharmacy with patient permission
[2023-03-17 17:22] LABS: CLARITY,URINE CLEAR (Clear); COLOR,URINE YELLOW (Yellow); GLUCOSE, URINE NEGATIVE (Neg); KETONES,URINE NEGATIVE (Neg); LEUKOCYTE ESTERASE ,URINE NEGATIVE (Neg); NITRITES, URINE NEGATIVE (Neg); OCCULT BLOOD,URINE NEGATIVE (Neg); PH,URINE 5.5 (4.8-8.0); PROTEIN,URINE NEGATIVE (Neg); UROBILINOGEN,URINE 0.2 E.U/dL (0.2-1.0)
[2023-03-17 17:23] LABS: UA COLLECTION TYPE CLN CATCH MIDSTREAM
[2023-03-17 17:24] LABS: BASOPHILS # (AUTO) 0.1 X10'3 (0-0.2); BASOPHILS % (AUTO) 0.8 % (0-1); EOSINOPHILS # (AUTO) 0.1 X10'3 (0-0.9); EOSINOPHILS % (AUTO) 0.8 % (0-6); HEMATOCRIT 43.5 % (42.0-52.0); HEMOGLOBIN 14.7 g/dl (14.0-17.9); LYMPHOCYTES # (AUTO) 1.6 X10'3 (1.1-4.8); LYMPHOCYTES % (AUTO) 22.6 % (21-51); MEAN CORPUSCULAR HEMOGLOBIN 29.2 PG (27.0-31.0); MEAN CORPUSCULAR HGB CONC 33.8 g/dL (33.0-36.5); MEAN CORPUSCULAR VOLUME 86.3 FL (78-98); MEAN PLATELET VOLUME 8.3 FL (7.4-10.4); MONOCYTES # (AUTO) 0.6 X10'3 (0-0.9); MONOCYTES % (AUTO) 8.4 % (2-12); NEUTROPHILS # (AUTO) 4.9 X10'3 (1.8-7.7); NEUTROPHILS % (AUTO) 67.4 % (42-75); PLATELET COUNT 228 X10'3 (140-440); RED BLOOD COUNT 5.04 X10'6 (4.70-6.10); RED CELL DISTRIBUTION WIDTH 14.6 % (11.5-14.5); WHITE BLOOD COUNT 7.2 X10'3 (4.5-11.0)
--- NOTE | 2023-03-17 17:31 | NUR ---
Dr. Wesley talking to the patient currently.
[2023-03-17 17:34] LABS: ALANINE AMINOTRANSFERASE 39 U/L (12-78); ALBUMIN 4.1 G/DL (3.4-5.0); ALBUMIN/GLOBULIN RATIO 1.2 (1.1-1.5); ALKALINE PHOSPHATASE 69 IU/L (46-116); ANION GAP 9 (8-16); ASPARTATE AMINO TRANSFERASE 26 U/L (10-37); BILIRUBIN,TOTAL 0.4 MG/DL (0.1-1.0); BLOOD UREA NITROGEN 13 MG/DL (7-18); BUN/CREATININE RATIO 13.5 (10.0-20.0); CHLORIDE 106 MMOL/L (99-107); CREATININE 0.96 MG/DL (0.60-1.10); GLUCOSE 93 MG/DL (70-104); POTASSIUM 4.2 MMOL/L (3.5-5.1); SODIUM 140 MMOL/L (135-145); TOTAL CARBON DIOXIDE 25.5 MMOL/L (24-32); TOTAL PROTEIN 7.6 G/DL (6.4-8.2); eGFR 77 ML/MIN
[2023-03-17 17:41] LABS: URINE AMPHETAMINE SCREEN NEGATIVE (Neg); URINE BARBITUATE SCREEN NEGATIVE (Neg); URINE BENZODIAZEPINES SCREEN NEGATIVE (Neg); URINE CANNABINOID SCREEN NEGATIVE (Neg); URINE COCAINE SCREEN NEGATIVE (Neg); URINE METHADONE SCREEN NEGATIVE (Neg); URINE OPIATE SCREEN NEGATIVE (Neg); URINE PHENCYCLIDINE SCREEN NEGATIVE (Neg)
[2023-03-17 17:45] LABS: ETHANOL < 0.010 GM/DL (0.0-0.010)
--- NOTE | 2023-03-17 17:54 | NUR ---
Patient admitted that he still has suicidal thoughts and has specific plan. When I asked him about the plan, he said I want to overdose myself!"
[2023-03-17 19:14] LABS: ACETAMINOPHEN < 2.0 UG/ML (10-30)
[2023-03-17] MEDS ORDERED: acetaminophen 325mg tablet PO ONE (21:20)
[2023-03-17] MEDS ORDERED: LORazepam 1 MG tablet PO ONE (21:20)
--- NOTE | 2023-03-18 01:25 | NUR ---
Report given to MIR Hillman
--- NOTE | 2023-03-18 01:31 | NUR ---
While Kady, MIR transporting another pt upstairs; Pt observed to be rubbing his urinal against wrist; Superficial abrasion observed to right wrist area; No bleeding to site at this time; Urinal removed from pt and MIR Hillman notified upon return to ED
--- NOTE | 2023-03-18 03:59 | NUR ---
pt. sleeping quietly on ED gurney without distress.
[2023-03-18] MEDS ORDERED: LORazepam 1 MG tablet PO ONE ×2 (04:45→18:40)
--- NOTE | 2023-03-18 09:00 | NUR ---
Report given to MIR Peralta in Overflow. Pt to go to bed 26.
--- NOTE | 2023-03-18 10:04 | NUR ---
pt is sleeping and resting supine.
--- NOTE | 2023-03-18 10:25 | NUR ---
ELI, Nithya, evaluating patient. No distress observed. Continue to monitor.
--- NOTE | 2023-03-18 12:10 | NUR ---
Patient eating lunch. No distress observed. Continue to monitor.
--- NOTE | 2023-03-18 14:10 | NUR ---
Patient was c/o NICHOLE and anxiety. RN received a verbal order for meds but when RN went to patient, patient was sleeping. Continue to monitor.
[2023-03-18] MEDS ORDERED: acetaminophen 325mg tablet PO PRN (14:15)
[2023-03-18] MEDS: LORazepam 1 MG tablet PO PRN (15:02)
--- NOTE | 2023-03-18 16:21 | NUR ---
patient came to me and let me know he has both hearing aides in his ear and has to keep them. patient also has partial dentures in his mouth.
--- NOTE | 2023-03-18 17:33 | NUR ---
Patient at the nurses station asking "What is the amount of Seroquel that would be toxic? Is it 50 pills or 100?" RN explained to patient that we are not going tell him how to kill himself. Patient states it's his backup. Continue to monitor.
--- NOTE | 2023-03-18 18:43 | NUR ---
The patient attempted to elope from the unit. Security was notified and he was cooperative with coming back to the general area of the overflow. MD made aware and ativan was given. The patient was tearful and stating he wanted to . He was moved close to the nursing station. MD made aware and orders were received.
[2023-03-18] MEDS ORDERED: prazosin 1mg capsule PO SCH (19:09)
[2023-03-18] MEDS ORDERED: tamsulosin 0.4mg capsule PO SCH (19:10)
[2023-03-18] MEDS ORDERED: quetiapine 100mg tablet PO SCH (19:11)
[2023-03-18] MEDS ORDERED: QUEtiapine 25mg tablet ONE (19:11)
[2023-03-18] MEDS ORDERED: amLODIPine 5mg tablet PO ONE (19:11)
[2023-03-18] MEDS: sertraline 50mg tablet PO SCH (19:13)
[2023-03-18] MEDS: bacitracin 15gm ointment TP SCH (19:18)
--- NOTE | 2023-03-18 19:30 | NUR ---
The patient had broken plastic eating utensils hidden in his jacket and had been self harming for the past 24 hours in the ER. His coat and hat with stick pen removed. made aware. He was given his HS medications early 2nd his agitation.
--- NOTE | 2023-03-18 20:53 | NUR ---
The patient appears to be sleeping. Will order finger foods for all meals until he is discharged in the AM.
--- NOTE | 2023-03-18 22:03 | NUR ---
The patient appears to be sleeping
--- NOTE | 2023-03-18 23:01 | NUR ---
PER [facility] THE PATIENT WILL BE TRANSPORTED TO [facility] TOMORROW AT 0830. THEY ARE REQUESTING A NURSE REPORT TO BE DONE AT [facility]. [phone]
--- NOTE | 2023-03-18 23:32 | NUR ---
The patient appears to be sleeping.
--- NOTE | 2023-03-19 01:02 | NUR ---
The patient appears to be sleeping
--- NOTE | 2023-03-19 03:10 | NUR ---
The patient appears to be sleeping
--- NOTE | 2023-03-19 05:07 | NUR ---
The patient appears to be sleeping
[2023-03-19 05:56] VITALS: BP 128/81
--- NOTE | 2023-03-19 06:47 | NUR ---
Patient sleeping on right side. No distress observed. Continue to monitor.
[2023-03-19] MEDS ORDERED: QUEtiapine 25mg tablet PO SCH (07:30)
--- NOTE | 2023-03-19 08:20 | NUR ---
Patient sitting up and eating breakfast. No distress observed. Continue to monitor.
[2023-03-19] MEDS: sertraline 50mg tablet PO SCH (08:29)
[2023-03-19] MEDS: bacitracin 15gm ointment TP SCH (08:30)
[2023-03-19] MEDS: LORazepam 1 MG tablet PO PRN (08:30)
== END 2023-03-19 09:15 ==
LOC: ER 15:50
DX: R45.851 Suicidal ideations (principal); Z20.822 Contact with and (suspected) exposure to COVID-19; I10 Essential (primary) hypertension; E78.00 Pure hypercholesterolemia, unspecified; Z88.8 Allergy status to other drugs, medicaments and biological substances
CPT/HCPCS: 36415; 71045; 80053; 80305; 80320; 80329; 81003; 83880; 84443; 84484; 85025; 87811; 93005; 99285

== ENCOUNTER 2023-03-22 09:16 | Emergency (ER) | payer OTHER, MEDICARE ==
[~2023-03-22] VITALS: Ht 170.2 cm; Wt 79.4 kg
[2023-03-22 09:50] LABS: BASOPHILS % (AUTO) 0.6 % (0-1); EOSINOPHILS # (AUTO) 0.1 X10'3 (0-0.9); EOSINOPHILS % (AUTO) 1.1 % (0-6); HEMOGLOBIN 14.8 g/dl (14.0-17.9); LYMPHOCYTES # (AUTO) 1.7 X10'3 (1.1-4.8); LYMPHOCYTES % (AUTO) 29.8 % (21-51); MEAN CORPUSCULAR HEMOGLOBIN 29.3 PG (27.0-31.0); MEAN CORPUSCULAR HGB CONC 33.6 g/dL (33.0-36.5); MEAN CORPUSCULAR VOLUME 87.4 FL (78-98); MEAN PLATELET VOLUME 8.5 FL (7.4-10.4); MONOCYTES # (AUTO) 0.6 X10'3 (0-0.9); MONOCYTES % (AUTO) 10.7 % (2-12); NEUTROPHILS # (AUTO) 3.3 X10'3 (1.8-7.7); NEUTROPHILS % (AUTO) 57.8 % (42-75); PLATELET COUNT 238 X10'3 (140-440); RED BLOOD COUNT 5.03 X10'6 (4.70-6.10); RED CELL DISTRIBUTION WIDTH 14.7 % (11.5-14.5); WHITE BLOOD COUNT 5.8 X10'3 (4.5-11.0)
[2023-03-22] MEDS ORDERED: LORazepam 2 mg/ml vial IM ONE (09:50)
[2023-03-22 10:02] LABS: ALANINE AMINOTRANSFERASE 34 U/L (12-78); ALBUMIN 3.8 G/DL (3.4-5.0); ALBUMIN/GLOBULIN RATIO 1.1 (1.1-1.5); ALKALINE PHOSPHATASE 69 IU/L (46-116); ANION GAP 11 (8-16); ASPARTATE AMINO TRANSFERASE 17 U/L (10-37); BILIRUBIN,TOTAL 0.5 MG/DL (0.1-1.0); BLOOD UREA NITROGEN 15 MG/DL (7-18); BUN/CREATININE RATIO 13.3 (10.0-20.0); CALCIUM 8.5 MG/DL (8.5-10.1); CHLORIDE 103 MMOL/L (99-107); CREATININE 1.13 MG/DL (0.60-1.10); GLUCOSE 174 MG/DL (70-104); POTASSIUM 3.5 MMOL/L (3.5-5.1); SODIUM 140 MMOL/L (135-145); TOTAL CARBON DIOXIDE 26.2 MMOL/L (24-32); TOTAL PROTEIN 7.2 G/DL (6.4-8.2); eGFR 64 ML/MIN
--- NOTE | 2023-03-22 10:28 | NUR ---
PT REPORTS HE IS HAVING HEAT WAVES THROUGHOUT HIS BODY, PROVIDER WAS MADE AWARE.
[2023-03-22 11:59] VITALS: BP 131/86
== END 2023-03-22 12:05 | disposition home or self-care (01) ==
LOC: ER 09:17
DX: F41.9 Anxiety disorder, unspecified (principal); I10 Essential (primary) hypertension; E78.00 Pure hypercholesterolemia, unspecified; Z88.8 Allergy status to other drugs, medicaments and biological substances
CPT/HCPCS: 36415; 71045; 80053; 83880; 84484; 85025; 93005; 96372; 99285; J2060

== ENCOUNTER 2023-05-16 22:04 | Inpatient (IN) | payer OTHER, MEDICARE ==
[~2023-05-16] VITALS: Ht 170.2 cm; Wt 80.4 kg
--- NOTE | 2023-05-16 22:50 | NUR ---
pt is calm and cooperative, dressed in green scrubs, pt has stated several times "I will find a way to kill myself if I get transferred to [place]...I do not want to go down there, I want to go upstairs", Pt is aware of plan to first be evaluated by [facility] tomorrow and that he will be staying here tonight. Sitter at bedside
[2023-05-16 22:56] LABS: BASOPHILS # (AUTO) 0.1 X10'3 (0-0.2); EOSINOPHILS # (AUTO) 0.1 X10'3 (0-0.9); EOSINOPHILS % (AUTO) 1.3 % (0-6); HEMATOCRIT 47.9 % (42.0-52.0); HEMOGLOBIN 15.9 g/dl (14.0-17.9); LYMPHOCYTES # (AUTO) 2.2 X10'3 (1.1-4.8); MEAN CORPUSCULAR HEMOGLOBIN 29.2 PG (27.0-31.0); MEAN CORPUSCULAR HGB CONC 33.2 g/dL (33.0-36.5); MEAN CORPUSCULAR VOLUME 87.8 FL (78-98); MEAN PLATELET VOLUME 8.4 FL (7.4-10.4); MONOCYTES # (AUTO) 0.9 X10'3 (0-0.9); MONOCYTES % (AUTO) 8.2 % (2-12); NEUTROPHILS # (AUTO) 7.1 X10'3 (1.8-7.7); NEUTROPHILS % (AUTO) 68.5 % (42-75); PLATELET COUNT 242 X10'3 (140-440); RED BLOOD COUNT 5.45 X10'6 (4.70-6.10); RED CELL DISTRIBUTION WIDTH 14.6 % (11.5-14.5); WHITE BLOOD COUNT 10.4 X10'3 (4.5-11.0)
[2023-05-16 23:04] LABS: ALANINE AMINOTRANSFERASE 38 U/L (12-78); ALBUMIN/GLOBULIN RATIO 1.2 (1.1-1.5); ALKALINE PHOSPHATASE 78 IU/L (46-116); ANION GAP 11 (8-16); ASPARTATE AMINO TRANSFERASE 22 U/L (10-37); BILIRUBIN,TOTAL 0.3 MG/DL (0.1-1.0); BLOOD UREA NITROGEN 19 MG/DL (7-18); BUN/CREATININE RATIO 20.2 (10.0-20.0); CALCIUM 9.1 MG/DL (8.5-10.1); CHLORIDE 105 MMOL/L (99-107); CREATININE 0.94 MG/DL (0.60-1.10); ETHANOL < 0.010 GM/DL (0.0-0.010); GLUCOSE 120 MG/DL (70-104); POTASSIUM 3.9 MMOL/L (3.5-5.1); SODIUM 140 MMOL/L (135-145); TOTAL CARBON DIOXIDE 23.6 MMOL/L (24-32); TOTAL PROTEIN 7.4 G/DL (6.4-8.2); eGFR 79 ML/MIN
--- NOTE | 2023-05-17 00:36 | NUR ---
Garrett moved to bed 25. He is cooperative, well oriented. Patient expresses suicidal ideation. Patient tells this insurance writer he will kill himself if he goes home. Patient is an army vet. He tells this insurance writer he does not want to be transported to a Psychiatric hospital. He desires admission to adult mental health here.
[2023-05-17 01:32] LABS: CLARITY,URINE SLIGHTLY CLOUDY (Clear); COLOR,URINE YELLOW (Yellow); GLUCOSE, URINE NEGATIVE (Neg); KETONES,URINE NEGATIVE (Neg); LEUKOCYTE ESTERASE ,URINE NEGATIVE (Neg); NITRITES, URINE NEGATIVE (Neg); OCCULT BLOOD,URINE NEGATIVE (Neg); PROTEIN,URINE NEGATIVE (Neg); UROBILINOGEN,URINE 0.2 E.U/dL (0.2-1.0)
[2023-05-17 01:39] LABS: UA COLLECTION TYPE CLN CATCH MIDSTREAM
[2023-05-17] MEDS ORDERED: QUET-1 PO (01:40)
[2023-05-17] MEDS ORDERED: MELA10TA2 PO (01:41)
[2023-05-17 01:42] LABS: BACTERIA,URINE NONE SEEN /HPF (Neg); CAL OXALATE CRYSTALS 3+ /HPF (NEGATIVE); MUCUS STRANDS MANY /LPF (Neg); RBC,URINE NONE SEEN /HPF (0-2); SQUAMOUS EPITHELIAL CELL,UR FEW /LPF (FEW); WBC,URINE 0-4 /HPF (0-4)
[2023-05-17] MEDS ORDERED: SERT100T PO (01:43)
[2023-05-17 01:44] LABS: SPERM MODERATE /HPF (NEGATIVE)
[2023-05-17] MEDS ORDERED: FLO0.4C PO (01:49)
[2023-05-17] MEDS ORDERED: MULT400T7 PO (01:53)
[2023-05-17 01:56] LABS: URINE AMPHETAMINE SCREEN NEGATIVE (Neg); URINE BARBITUATE SCREEN NEGATIVE (Neg); URINE BENZODIAZEPINES SCREEN POSITIVE (Neg); URINE CANNABINOID SCREEN NEGATIVE (Neg); URINE COCAINE SCREEN NEGATIVE (Neg); URINE METHADONE SCREEN NEGATIVE (Neg); URINE OPIATE SCREEN NEGATIVE (Neg); URINE PHENCYCLIDINE SCREEN NEGATIVE (Neg)
[2023-05-17] MEDS ORDERED: BUSP10TA11 PO (01:57)
[2023-05-17] MEDS ORDERED: LORA-269 PO (01:59)
[2023-05-17] MEDS ORDERED: BUSP5TAB3 PO (03:36)
[2023-05-17] MEDS ORDERED: FOLI0.4T14 PO (03:36)
[2023-05-17] MEDS ORDERED: LORA0.5P PO (03:36)
[2023-05-17] MEDS ORDERED: MULT-1085 PO (03:36)
[2023-05-17] MEDS ORDERED: ROSU5TAB12 PO (03:38)
--- NOTE | 2023-05-17 06:59 | NUR ---
Patient appears to be sleeping. No S/S of distress noted.
[2023-05-17] MEDS ORDERED: ROSUVASTATIN CALCIUM 5 MG TABLET PO SCH (08:00)
[2023-05-17] MEDS: folic acid 0.4mg tablet PO SCH (08:23)
[2023-05-17] MEDS: multivitamins, therapeutics tablet PO SCH (08:24)
[2023-05-17] MEDS: busPIRone 5mg tablet PO SCH ×3 (08:24→20:16)
[2023-05-17] MEDS: LORazepam 0.5 MG tablet PO SCH (08:24)
[2023-05-17] MEDS: sertraline 50mg tablet PO SCH (08:24)
--- NOTE | 2023-05-17 08:51 | NUR ---
Patient ate his breakfast, went to the bathroom, and is now sleeping. Patient is medication compliant.
[2023-05-17] MEDS ORDERED: LORazepam 1 MG tablet PO ONE (09:45)
--- NOTE | 2023-05-17 11:36 | NUR ---
One to one performed at patient's bedside. Patient wears a hearing aid in his right ear to be able to communicate. Patient reports that he just wants to , that he doesn't want to be here anymore and that he is at the end of his rope. Patient has c/o depression. States that he wishes he would have finished the job last night. He attempted 3 months ago to cut his wrists. Patient is hopless. Patient did not eat his breakfast because he states that he is not hungry.
[2023-05-17] MEDS ORDERED: acetaminophen 325mg tablet PO ONE (12:20)
--- NOTE | 2023-05-17 12:42 | NUR ---
Patient complaining of headache 10, but also states that he has tooth pain. Tylenol administered with effectiveness.
--- NOTE | 2023-05-17 15:23 | NUR ---
Patient has been napping this afternoon. No s/s of distress noted.
--- NOTE | 2023-05-17 16:57 | NUR ---
Patient up to the restroom and back to bed.
--- NOTE | 2023-05-17 18:10 | NUR ---
Patient has not eaten any of his food today.
--- NOTE | 2023-05-17 18:30 | NUR ---
Assumed patient care, no distress.
--- NOTE | 2023-05-17 19:15 | NUR ---
Patient is awake, cooperative, no distress. In view from nurses station.
--- NOTE | 2023-05-17 19:37 | NUR ---
Patient is sleeping quietly. He was medication. In view from nurses station.
[2023-05-17] MEDS: quetiapine 100mg tablet PO SCH (20:16)
[2023-05-17] MEDS: tamsulosin 0.4mg capsule PO SCH (20:16)
[2023-05-17] MEDS: Melatonin 3mg tablet PO SCH (21:00)
--- NOTE | 2023-05-17 21:01 | NUR ---
Patient is sleeping quietly, supine positon.
--- NOTE | 2023-05-17 22:36 | NUR ---
Patient sleeping on right side. No distress.
--- NOTE | 2023-05-17 23:17 | NUR ---
Patient continues to sleep. He has repositioned in bed. No distress.
--- NOTE | 2023-05-18 03:00 | NUR ---
Patient remains sleeping without problem.
--- NOTE | 2023-05-18 04:09 | NUR ---
Patilent in no distress, he is sleeping on his right side.
--- NOTE | 2023-05-18 04:11 | NUR ---
No distress, sleeping, in view from nurses station.
--- NOTE | 2023-05-18 06:58 | NUR ---
Patient is sleeping in bed, coughs occasionally.
[2023-05-18] MEDS: sertraline 50mg tablet PO SCH (09:05)
[2023-05-18] MEDS: LORazepam 0.5 MG tablet PO SCH (09:05)
[2023-05-18] MEDS: busPIRone 5mg tablet PO SCH ×3 (09:06→20:18)
[2023-05-18] MEDS: multivitamins, therapeutics tablet PO SCH (09:06)
[2023-05-18] MEDS: folic acid 0.4mg tablet PO SCH (09:06)
--- NOTE | 2023-05-18 10:46 | NUR ---
Patient did eat approximately half of his breakfast tray. Patient states that he is feeling much better after a good nights sleep. Patient denies SI. Patient utilizes hearing aids for communication. Patient is sleeping at this time.
[2023-05-18 11:46] LABS: ACETAMINOPHEN < 2.0 UG/ML (10-30)
--- NOTE | 2023-05-18 15:46 | NUR ---
Patient walking around, stretching his legs. No S/S of distress noted.
--- NOTE | 2023-05-18 16:29 | NUR ---
[facility] called and the [facility] wants a certain special education para professional Covid-19 which we do not carry. They will let Avni know.
--- NOTE | 2023-05-18 16:34 | NUR ---
Patient declined at [place] because we do not have "PCR" Covid test.
[2023-05-18] MEDS ORDERED: LORazepam 1 MG tablet PO ONE (19:10)
--- NOTE | 2023-05-18 20:00 | NUR ---
Pt in bed with eyes open. Pt feeling anxious waiting on night time meds. PRN ativan given.
[2023-05-18] MEDS: quetiapine 100mg tablet PO SCH (20:18)
[2023-05-18] MEDS: tamsulosin 0.4mg capsule PO SCH (20:18)
[2023-05-18] MEDS: Melatonin 3mg tablet PO SCH (21:32)
--- NOTE | 2023-05-18 22:27 | NUR ---
Pt in bed with eyes close. No s/s of distress at this time.
--- NOTE | 2023-05-19 00:20 | NUR ---
Pt in bed with eyes closed. No s/s od distress at this time.
--- NOTE | 2023-05-19 02:05 | NUR ---
Pt in bed with eyes closed sleeping comfortably. No s/s od distress at this time.
--- NOTE | 2023-05-19 04:10 | NUR ---
Pt in bed with eyes closed, sleeping comfortably. No s/s od distress at this time.
--- NOTE | 2023-05-19 05:22 | NUR ---
Pt in bed with eyes closed sleeping comfortably. No s/s od distress at this time.
--- NOTE | 2023-05-19 05:40 | NUR ---
Vick Recieved report from AM shift. Pt pleasant and cooperative, took meds with no issues noted. Pt reported feeling anxious, PRN ativan given. Pt has PRN ativan ordered. During assessment Pt reported before having a panic Pt feels anxious and has a burning sensation that radiates up to his head. Pt reported when he gets panic attacks is when he feels like committing suicide. Pt denies SI,HI,AH/VH at this time.
--- NOTE | 2023-05-19 06:45 | NUR ---
Took report from Delfina HESTER
[2023-05-19] MEDS: multivitamins, therapeutics tablet PO SCH (08:07)
[2023-05-19] MEDS: sertraline 50mg tablet PO SCH (08:08)
[2023-05-19] MEDS: LORazepam 0.5 MG tablet PO SCH (08:08)
[2023-05-19] MEDS: folic acid 0.4mg tablet PO SCH (08:08)
[2023-05-19] MEDS: busPIRone 5mg tablet PO SCH ×3 (08:09→20:35)
--- NOTE | 2023-05-19 10:16 | NUR ---
Patient resting comfortably at this time. Ate some of breakfast.
--- NOTE | 2023-05-19 12:28 | NUR ---
Patient woken up for lunch, ambulated to the bathroom and is now sitting on side of bed eating
--- NOTE | 2023-05-19 14:09 | NUR ---
Patient in bed sleeping at this time. No s/s of distress
[2023-05-19] MEDS: LORazepam 1 MG tablet PO PRN (16:01)
--- NOTE | 2023-05-19 16:10 | NUR ---
Patient up ambulating to the restroom. He requested ativan for anxiety at this time, administered.
[2023-05-19] MEDS ORDERED: LORazepam 1 MG tablet PO ONE (17:00)
[2023-05-19 17:04] VITALS: BP 146/84
--- NOTE | 2023-05-19 17:10 | NUR ---
Pt admitted to [facility] from [facility] ER overflow. Pt placed on a 5150 for DTS by law officer at [facility] ED. Rosario received contact from the [facility] that client was planning on killing himself by slitting his wrists. [employer] responded and Buster presented as despondent and tearful, stating his frustration with his inability to be "happy go rogerio."
[2023-05-19] MEDS ORDERED: loperamide 2mg capsule PO PRN (17:25)
[2023-05-19] MEDS ORDERED: magnesium hydroxide 30ml (MOM) UD suspension PO PRN (17:25)
[2023-05-19] MEDS ORDERED: NICOTINE POLACRILEX 2 MG LOZENGE BC PRN (17:25)
[2023-05-19] MEDS ORDERED: acetaminophen 325mg tablet PO PRN ×2 (17:25)
[2023-05-19] MEDS ORDERED: mag hydrox/Alum hydrox/simeth 30ml oral suspension PO PRN (17:25)
[2023-05-19 20:00] VITALS: BP 136/80
[2023-05-19] MEDS: tamsulosin 0.4mg capsule PO SCH (20:35)
[2023-05-19] MEDS: Melatonin 3mg tablet PO SCH (20:35)
[2023-05-19] MEDS: quetiapine 100mg tablet PO SCH (20:35)
--- NOTE | 2023-05-19 22:17 | NUR ---
Notified Dr. Kamaljit MCELROY of high risk on suicide assessment, he would like patient to be moved closer to the nurses station. I told him the patient was already sleeping and that I would have to move other patients so plan is to move patient in the am.
--- NOTE | 2023-05-20 04:15 | NUR ---
Nursing Progress Note: Problem : Pt admitted to [facility] from [facility] ER overflow. Pt placed on a 5150 for DTS by law officer at [facility] ED. Rosario received contact from the Veterans Suicide Hotline that client was planning on killing himself by slitting his wrists. [employer] responded and Buster presented as despondent and tearful, stating his frustration with his inability to be "happy go rogerio." Interventions : Maintained a safe and supportive environment, provided clear and simple instructions, provided active listening and positive encouragement, encouraged pt. to participate on the unit, and maintained Q 15min safety checks. Response: Pt. was a new admit from ER overflow. Admission paperwork and assessments completed. 1:1 done at bedside and medications administered with no issues. Pt denies A/VH. Endorses SI but currently has no active plan. Denies HI. Pt stated he has been having panic attacks for the past two months to the point where he almost blacks out. He has been having SI alongside with his panic attacks. Pt states Ativan has been effective at treating his panic attacks but his doctor only ordered it for QAM and it appears he needed a PRN order or the frequency adjusted. Pt encouraged to discuss this with psychiatry in the AM. He stated, this time I almost went through with it, Im just tired of living. Pt was emotional and tearful during conversation with nurse. Pt discussed trauma he experience in the third grade and the challenges he has had throughout his life. Pt. appears to be lonely and states the worse times are at night when his mind is racing. Pt has been sleeping since approx. 2100 with no distress. Plan : Pt. continues to require a safe and supportive environment.
[2023-05-20 07:48] LABS: HEMOGLOBIN A1C 6.3 % (4.5-6.2)
[2023-05-20 08:00] VITALS: BP 129/88
[2023-05-20 08:09] LABS: CHOL/HDL RATIO 4.2 (0.00-4.99); CHOLESTEROL 155 MG/DL (0-200); HDL CHOLESTEROL 37 MG/DL (35-60); LDL CHOLESTEROL 96 MG/DL (50-100); TRIGLYCERIDES 103 MG/DL (20-135)
[2023-05-20] MEDS: multivitamins, therapeutics tablet PO SCH (08:13)
[2023-05-20] MEDS: busPIRone 5mg tablet PO SCH ×3 (08:14→20:39)
[2023-05-20] MEDS: LORazepam 0.5 MG tablet PO SCH (08:14)
[2023-05-20] MEDS: sertraline 50mg tablet PO SCH (08:14)
[2023-05-20] MEDS: folic acid 0.4mg tablet PO SCH (08:14)
[2023-05-20] MEDS: nicotine 21mg patch - 24 hr TD SCH (08:17)
--- NOTE | 2023-05-20 09:06 | NUR ---
Malnutrition Consult: Pt w/ normal strength, no edema/wounds, appears WD/WN per ER PA note, and refused first meal but ~88% avg subsequent 3 meals which will meet estimated needs. Pt standing scaled wt hx 77.6kg prior 11/16/22 admit consistent w/ current standing scaled wt 77.1kg per EMR. Pt lacks minimum malnutrition criteria at this time. Pt A1C 6.3% w/ no PMH DM per EMR; A1C appropriate recommend continuing regular diet. Addendum: 05/20/23 at [address] Amended: Links added.
--- NOTE | 2023-05-20 10:01 | NUR ---
PSYCHOSOCIAL ASSESSMENT Pt. is a 72 year old single white male who was placed on a 5150 for DTS by law officer at [facility] ED. Rosario received contact from the Veterans Suicide Hotline that client was planning on killing himself by slitting his wrists. [employer] responded and Vick presented as despondent and tearful, stating his frustration with his inability to be "happy go rogerio." Met with Pt. today. Pt. lives alone in a studio at a motel. He reported that [facility]. He has lived there for just over a year. He reported he lived in his car before this. He has a car, he sold his truck a while ago which had all of his tools that he used for doing jobs. He got emotional when talking about selling his tools and truck reporting that he doesn't really know who he is anymore. He reported he goes to [employer] to exercise frequently as that helps his anxiety and panic attacks. He reported he attends [facility] every Friday, his relationship with God is a source of hope but he has felt distant lately. He has SSI for income and also disability from the [facility] to survive on. He reported that he ran out of medications for four days which is why he believed he began to feel suicidal. He reported he has had many suicide attempts in the past and been in many IP hospitalizations over the years. His last hospitalization was at [facility] in [place], [place] one month ago. Pt reported that he is "sick of feeling like a nervous wreck all the time" and that he feels like he is losing control because medications are begin taken away from him and he feels tired of life. He is frustrated that guns were taken away and now his medications (he had been storing up a bunch to overdose on). He stated, "It feels like they are taking away my power to get out of this (he explained to get out of life). Pt. also reported that he was looking forward to going to a Mens conference at [facility] that starts tomorrow night and wondered if he could get out of the hospital to attend it as he spent money on it already. This Admissions Clerk utilized reflective listening and explained I would be back tomorrow to speak to him and that the doctor would decide whether to place him on a 5250 or not (explained how this would extend his stay). MSE: Pt's demeanor was calm, compliant and pleasant to work with. His mood was depressive with a restricted affect. His was alert and oriented X 4. His thought content and thought process were WNL. He was very open to sharing his story, thoughts and feelings with this Admissions Clerk. Malia Lugo LCSW
[2023-05-20] MEDS: LORazepam 1 MG tablet PO PRN (14:41)
--- NOTE | 2023-05-20 15:33 | NUR ---
Nursing Progress Note: Problem : Pt admitted to [facility] from [facility] ER overflow. Pt placed on a 5150 for DTS by law officer at [facility] ED. Rosario received contact from the Veterans Suicide Hotline that client was planning on killing himself by slitting his wrists. [employer] responded and Buster presented as despondent and tearful, stating his frustration with his inability to be "happy go rogerio." Interventions : 1:1 assessment, establishment of rapport,maintained a safe and supportive environment, provided clear and simple instructions, therapeutic conversation, active listening, ensured contract for safety, medication administration/education/monitoring, provided distraction, redirection, positive reinforcement, and maintained Q15 minute safety checks. Response: Pt was up for breakfast and cooperative with medications. Pt admitted to some depression, "Well...minor, being in here, what do you expect?" Pt denied SI/HI/AH/VH. Pt's Buspar was increased to 20 mg TID today. Pt c/o increased anxiety after lunch and asked if he could have another 1 & 1/2 mg of Ativan. Educated that his PRN Ativan was 1 mg, administered PRN Ativan 1 mg at 1441. Pt stated, "I'm feeling uptight...I've got a lot on my mind." Pt was placed on a 5250 today. Plan : Pt. continues to require a safe and supportive environment until no longer a danger to self and safe for discharge.
--- NOTE | 2023-05-20 16:02 | NUR ---
Pt just approached this nurse to report that the PRN Ativan 1 mg "did nothing for me."
[2023-05-20] MEDS ORDERED: LORazepam 1 MG tablet PO ONE (16:45)
--- NOTE | 2023-05-20 17:15 | NUR ---
Obtained a T.O. from Dr Mari for a one time dose of Ativan 1 mg given at 1715. Pt reported, "I'm on edge, I'm uptight, I just want to scream! I feel like I need a cigarette!" Pt offered a PRN nicotine lozenge and accepted.
[2023-05-20 19:52] VITALS: BP 155/98
[2023-05-20] MEDS: tamsulosin 0.4mg capsule PO SCH (20:38)
[2023-05-20] MEDS: quetiapine 100mg tablet PO SCH (20:38)
[2023-05-20] MEDS: Melatonin 3mg tablet PO SCH (20:39)
--- NOTE | 2023-05-20 21:59 | NUR ---
INCIDENT: Self-injurious behavior: At 2027 Homer rushing reported that during rounds, he had discovered that the patient had a plastic knife and had been cutting at his right wrist with it. Self-inflicted laceration noted right anterior wrist, not deep enough to warrant stitches, superficial with scant bleeding though large enough to indicated that patient had sawed at it for awhile. Cleansed with NS, patted dry, applied transparent dressing and cloth Medipore tape. Picture taken and placed in chart. Notified Dr Mari via telephone. Dr Mari ordered to place patient on a LOS. Diet modified to finger foods. Dr Mari also recommends moving the patient to a room closer to the nurse's station when possible.
--- NOTE | 2023-05-21 01:39 | NUR ---
Nursing Progress Note: Problem : Pt admitted to [facility] from [facility] ER overflow. Pt placed on a 5150 for DTS by law officer at [facility] ED. Rosario received contact from the Veterans Suicide Hotline that client was planning on killing himself by slitting his wrists. [employer] responded and Buster presented as despondent and tearful, stating his frustration with his inability to be "happy go rogerio." Interventions : 1:1 assessment, establishment of rapport,maintained a safe and supportive environment, provided clear and simple instructions, therapeutic conversation, active listening, medication administration/education/monitoring, provided distraction, redirection, positive reinforcement, Line of sight level of observation this shift after self-injurious behavior incident. Response: Pt engaged in self-injurious behavior this shift and is now on a line of sight. (see previous incident nurse's note.) Pt made statements that he was upset that the tech discovered the plastic knife as he wanted to "bleed to under the covers." Pt stated, that he wanted "out of here." Clarified that what he meant was that he wanted out of here by dying. Pt was cooperative with all medications. Plan : Pt. continues to require a safe and supportive environment until no longer a danger to self and safe for discharge.
[2023-05-21 08:00] VITALS: BP 125/79
[2023-05-21] MEDS: busPIRone 5mg tablet PO SCH ×3 (08:49→19:56)
[2023-05-21] MEDS: LORazepam 0.5 MG tablet PO SCH (08:50)
[2023-05-21] MEDS: multivitamins, therapeutics tablet PO SCH (08:50)
[2023-05-21] MEDS: QUEtiapine 25mg tablet PO SCH (08:50)
[2023-05-21] MEDS: sertraline 50mg tablet PO SCH (08:50)
[2023-05-21] MEDS: folic acid 0.4mg tablet PO SCH (08:50)
[2023-05-21] MEDS: nicotine 21mg patch - 24 hr TD SCH (08:52)
[2023-05-21] MEDS ORDERED: ALPRAZolam 0.5mg tablet PO PRN (14:25)
[2023-05-21] MEDS ORDERED: ALPRAZolam 0.5mg tablet PO ONE (14:35)
--- NOTE | 2023-05-21 16:47 | NUR ---
Nursing Progress Note: Buster Problem: Pt admitted to [facility] from [facility] ER overflow. Pt placed on a 5150 for DTS by law officer at [facility] ED. Rosario received contact from the Veterans Suicide Hotline that client was planning on killing himself by slitting his wrists. [employer] responded and Buster presented as despondent and tearful, stating his frustration with his inability to be "happy go rogerio." Interventions : 1:1 assessment, establishment of rapport,maintained a safe and supportive environment, provided clear and simple instructions, therapeutic conversation, active listening, medication administration/education/monitoring, provided distraction, redirection, positive reinforcement, Line of sight level of observation this shift after self-injurious behavior incident. Response: Patient is pleasant and cooperative this shift; he was on LOS for half of this shift. Patient is compliant with scheduled medication and assessment. When display card writer inquired about SI he stated, Well I kind of want to be , just when my panic attacks are bad. He does not endorse a plan, he denies HI and AVH. He reports, I just have a lot going on, I paid $188 for a mens group for [facility] that Im missing now too. Patient lives alone, he reports that he is lonely, and does not have any friends/family around but he does attend [employer] every Friday. Patient reports feeling anxious this shift, we discussed some coping mechanisms such as journaling/coloring/drawing/socializing/exercising. Patient was observed up for all meals/snacks, and he went out to the patio. Shower encouraged but declined. Ativan discontinued and Xanax began this shift for panic attacks. PRN Xanax administered with good effect. Plan: Pt. continues to require a safe and supportive environment until no longer a danger to self and safe for discharge.
--- NOTE | 2023-05-21 17:52 | NUR ---
SYRUP MIXER HELPER documentation: I have reviewed all interventions and assessments performed and documented by AMY Adams.
[2023-05-21] MEDS ORDERED: ALPRAZolam 0.5mg tablet PO SCH (18:00)
[2023-05-21] MEDS: ALPRAZolam 0.5mg tablet PO SCH (18:07)
[2023-05-21 19:00] VITALS: BP 155/91
[2023-05-21] MEDS: quetiapine 100mg tablet PO SCH (19:56)
[2023-05-21] MEDS: tamsulosin 0.4mg capsule PO SCH (19:56)
[2023-05-21] MEDS: Melatonin 3mg tablet PO SCH (19:56)
--- NOTE | 2023-05-22 00:01 | NUR ---
Nursing Progress Note: Buster Problem: Pt admitted to [facility] from [facility] ER overflow. Pt placed on a 5150 for DTS by law officer at [facility] ED. Rosario received contact from the Veterans Suicide Hotline that client was planning on killing himself by slitting his wrists. [employer] responded and Buster presented as despondent and tearful, stating his frustration with his inability to be "happy go rogerio." Interventions : 1:1 assessment, establishment of rapport,maintained a safe and supportive environment, provided clear and simple instructions, therapeutic conversation, active listening, medication administration/education/monitoring, provided distraction, redirection, positive reinforcement, Line of sight level of observation this shift after self-injurious behavior incident. Response: Patient resting in bed, he is pleasant and cooperative. He states that he has some depression which has significantly improved. He gets panic attacks which brings on his suicide ideation. He currently has passive SI which comes and goes when he is tired of coping with things. Patient is pleasant, had some snacks and took all HS medications without issue. He is currently sleeping with no needs, will continue to monitor. Plan: Pt. continues to require a safe and supportive environment until no longer a danger to self and safe for discharge.
[2023-05-22 08:00] VITALS: BP 94/73
[2023-05-22] MEDS: sertraline 50mg tablet PO SCH (08:31)
[2023-05-22] MEDS: ALPRAZolam 0.5mg tablet PO SCH ×3 (08:31→18:04)
[2023-05-22] MEDS: multivitamins, therapeutics tablet PO SCH (08:31)
[2023-05-22] MEDS: QUEtiapine 25mg tablet PO SCH (08:31)
[2023-05-22] MEDS: busPIRone 5mg tablet PO SCH ×3 (08:32→20:56)
[2023-05-22] MEDS: folic acid 0.4mg tablet PO SCH (08:32)
[2023-05-22] MEDS: nicotine 21mg patch - 24 hr TD SCH (08:32)
--- NOTE | 2023-05-22 13:31 | NUR ---
5250 upheld for DTS
--- NOTE | 2023-05-22 15:36 | NUR ---
Nursing Progress Note: Problem : Pt admitted to [facility] from [facility] ER overflow. Pt placed on a 5150 for DTS by law officer at [facility] ED. Rosario received contact from the Veterans Suicide Hotline that client was planning on killing himself by slitting his wrists. [employer] responded and Buster presented as despondent and tearful, stating his frustration with his inability to be "happy go rogerio." Interventions : Introduced self and established rapport, maintained a safe and supportive environment, ensured contract for safety, provided clear and simple instructions, provided active listening and positive encouragement, changed dressing to pt's right wrist, and maintained Q 15min safety checks. Response : Received pt. sleeping in bed at the beginning of the shift, he was awoken to attend breakfast in the Group Room and afterwards retreated back to bed. 1:1 was completed later at bedside, pt. presents as cooperative, fatigued, anxious, and withdrawn. He denies any current S/I, or other mental health s/s. Pt. then goes on to talk about a previous suicide attempt he had a few months ago in which he cut his wrist when staying at a different facility in [place]. Upon further questioning by this web content writer regarding his motive, pt. stated, "I don't like [place]." This was endorsed to Dr. Lay. Pt. then continued on in a linear manner to talk about the recent disagreements between him and his brothers regarding his mother's property. The dressing to pt's right wrist from his recent suicide attempt was changed and area appears to be healing well. No s/s of increased redness or infection were noted. Pt. isolated in bed throughout much of the shift. He did attend a court hearing today and meals. Plan : Pt. continues to require a safe and supportive environment.
[2023-05-22 19:00] VITALS: BP 134/82
[2023-05-22] MEDS: tamsulosin 0.4mg capsule PO SCH (20:55)
[2023-05-22] MEDS: quetiapine 100mg tablet PO SCH (20:56)
[2023-05-22] MEDS: Melatonin 3mg tablet PO SCH (21:54)
--- NOTE | 2023-05-23 02:07 | NUR ---
Nursing Progress Note: Buster Problem : Pt admitted to [facility] from [facility] ER overflow. Pt placed on a 5150 for DTS by law officer at [facility] ED. Rosario received contact from the Veterans Suicide Hotline that client was planning on killing himself by slitting his wrists. [employer] responded and Buster presented as despondent and tearful, stating his frustration with his inability to be "happy go rogerio." Interventions : Introduced self and established rapport, maintained a safe and supportive environment, ensured contract for safety, provided clear and simple instructions, provided active listening and positive encouragement, changed dressing to pt's right wrist, and maintained Q 15min safety checks. Response : Received report from AM shift. Pt in bed with eyes open at beginning of shift. Pt is cooperative and compliant, took meds with no issues noted. During assessment this fiction and nonfiction prose writer noticed a plastic knife on top of the blanket. When asked about SI Pt hesitated and was quiet for a second. Pt stated he is tired of living, tired of feeling hopeless. Pt stated he started cutting his wrist with the plastic knife after dinner. Pt stated he does not trust anyone. Pt expressed when he was going to nondenominational he would hear voices telling him to kill himself. When a prayer given by the mister and their team Pt state he feels less anxious and suicidal. Pt stated feeling suicidal due to his hearing today. Pt stated it was very important for him to leave today because he was planning on attending a mens group at [facility] this evening. Pt stated the group happens every once in a while. Pt reported he is man of god and wants to do right. This fiction and nonfiction prose writer assured the Pt a man of god does not take their own life. That it is a sin to take your own life, Pt agreed. Pt stated he feel stressed with family and feeling of no hope puts him in a state of anxiety and depression. Pt stated when he has panic attacks and when he has a those attacks he feels a burning sensation in his stomach that radiates to his head. Pt stated when he has those panic attacks is when he feels suicidal. This fiction and nonfiction prose writer cleanse site with normal saline applied antibiotic ointment and secured with a Band-Aid. Superficial laceration, no s/s of infection Pt denies HI, A/V Hallucinations at the time. Pt. isolated in bed throughout much of the shift. He did attend a court hearing today and meals. Plan : Pt. continues to require a safe and supportive environment.
[2023-05-23] MEDS: nicotine 21mg patch - 24 hr TD SCH (07:46)
[2023-05-23] MEDS: sertraline 50mg tablet PO SCH (07:54)
[2023-05-23] MEDS: folic acid 0.4mg tablet PO SCH (07:54)
[2023-05-23] MEDS: ALPRAZolam 0.5mg tablet PO SCH ×2 (07:54→13:28)
[2023-05-23] MEDS: multivitamins, therapeutics tablet PO SCH (07:55)
[2023-05-23] MEDS: busPIRone 5mg tablet PO SCH ×3 (07:55→20:13)
[2023-05-23] MEDS: QUEtiapine 25mg tablet PO SCH (07:55)
[2023-05-23 08:00] VITALS: BP 109/70
--- NOTE | 2023-05-23 17:42 | NUR ---
Nursing Progress Note: Problem: Pt admitted to [facility] from [facility] ER overflow. Pt placed on a 5150 for DTS by law officer at [facility] ED. Rosario received contact from the Veterans Suicide Hotline that client was planning on killing himself by slitting his wrists. [employer] responded and Buster presented as despondent and tearful, stating his frustration with his inability to be "happy go rogerio." Intervention: 1:1 assessment with therapeutic communication and active listening; Medication administration/education/monitoring; ensured contract for safety, provided clear and simple instructions, cleansed right wrist and applied new band-aid; maintained Q 15min safety checks. Consult with Dr. Lay regarding pt's demeanor when woke for his 1300 med. SEE Med change to Alprazolam. Response: Received pt. sleeping in bed at start of shift. Pt up for breakfast ate most of his meal. Pt is cooperate and calm with morning assessment. Pt expressed his disappointment with having to stay. Affect is flat and depressed. He states, he was told he would be going home prior to his hearing and then had to stay. Encouraged pt to discuss thoughts and feelings with his provider today. He agreed to share his thoughts and disappointment with his doctor. He denies any current S/I, or other mental health s/s. Plan: Pt. continues to require a safe and supportive environment.
[2023-05-23] MEDS: ALPRAZolam 0.25mg tablet PO SCH (18:06)
--- NOTE | 2023-05-23 18:55 | NUR ---
LOS ended at [address] Lay.
[2023-05-23 20:00] VITALS: BP 122/77
[2023-05-23] MEDS: tamsulosin 0.4mg capsule PO SCH (20:13)
[2023-05-23] MEDS: Melatonin 3mg tablet PO SCH (20:13)
[2023-05-23] MEDS: quetiapine 100mg tablet PO SCH (20:13)
--- NOTE | 2023-05-24 05:38 | NUR ---
Nursing Progress Note:BD Problem: Pt admitted to [facility] from [facility] ER overflow. Pt placed on a 5150 for DTS by law officer at [facility] ED. Rosario received contact from the Veterans Suicide Hotline that client was planning on killing himself by slitting his wrists. [employer] responded and Buster presented as despondent and tearful, stating his frustration with his inability to be "happy go rogerio." Intervention: 1:1 assessment with therapeutic communication and active listening; Medication administration/education/monitoring; ensured contract for safety, provided clear and simple instructions, cleansed right wrist and applied new band-aid; maintained Q 15min safety checks. Consult with Dr. Lay regarding pt's demeanor when woke for his 1300 med. SEE Med change to Alprazolam. Response: Dr. Acosta d/c LOS at beginning of shift. Pt received lying supine in room, easily arousable. Pt has hearing aids noted on chair adjacent to bed x 2. Pt placed right ear hearing aid. Pt stated his reason for being admitted to unit is him having S/I. Patient currently has S/I but no active plan to hurt self. Pt states he currently has a lot of family issues revolving around his family. He stated on more than one occasion that his family members are tweekers. As a result of the tweekers, he was evicted from his home after they coerced his mother to do so. He also believes that he threatened to call the service dog trainer to his family members due to drug growing activity on their [address] property. Pt struggles with panic attacks. His panic attacks manifest as a strong burning sensation then prolonged anxiety. He states his current access to Seroquel has been limited due to prior suicide attempts by Seroquel pill ingestion. He also has tried to hang himself. He states he feels hopeless due to the panic attack intensity. Pt has a prior superficial wound to right anterior wrist. Bandage in place. Pt is mostly concerned about missing a recent mens retreat that he paid for. Pt accessed PRN Xanax during shift with effectiveness. Plan: Pt. continues to require a safe and supportive environment.
[2023-05-24 08:00] VITALS: BP 119/75
[2023-05-24] MEDS: nicotine 21mg patch - 24 hr TD SCH (08:56)
[2023-05-24] MEDS: busPIRone 5mg tablet PO SCH ×3 (08:57→21:19)
[2023-05-24] MEDS: folic acid 0.4mg tablet PO SCH (08:57)
[2023-05-24] MEDS: multivitamins, therapeutics tablet PO SCH (08:58)
[2023-05-24] MEDS: QUEtiapine 25mg tablet PO SCH (08:58)
[2023-05-24] MEDS: ALPRAZolam 0.25mg tablet PO SCH ×3 (08:59→17:59)
[2023-05-24] MEDS: sertraline 50mg tablet PO SCH (09:00)
--- NOTE | 2023-05-24 14:25 | NUR ---
Nursing Progress Note: Buster Problem: Pt admitted to [facility] from [facility] ER overflow. Pt placed on a 5150 for DTS by law officer at [facility] ED. Experience [employer] received contact from the Veterans Suicide Hotline that client was planning on killing himself by slitting his wrists. [employer] responded and Buster presented as despondent and tearful, stating his frustration with his inability to be "happy go rogerio." Intervention: 1:1 assessment with therapeutic communication and active listening; Medication administration/education/monitoring; ensured contract for safety, provided clear and simple instructions, cleansed right wrist and applied new Band-Aid; maintained Q 15min safety checks. Response: Received pt. sleeping in bed, w/o distress at the beginning of this shift. Pt woke for vitals and was cooperative. He returned to sleep and woke for breakfast which he ate well, along with lunch. He took AM meds and all scheduled meds w/o issue. Pt unsteady on his feet in AM. His O2% this AM was 89. It was repeated when he got up and was sitting on the edge of his bed and his O2 was 94%. Pt was given a FWW which he used well to get to lunch and he was appreciative. Pt pleasant in interactions and during assessments. He napped in both AM and after lunch. He denies current S/I, or other mental health s/s. Plan: Pt. continues to require a safe and supportive environment.
[2023-05-24 19:00] VITALS: BP 127/82
[2023-05-24] MEDS: Melatonin 3mg tablet PO SCH (21:19)
[2023-05-24] MEDS: tamsulosin 0.4mg capsule PO SCH (21:19)
[2023-05-24] MEDS: quetiapine 100mg tablet PO SCH (21:21)
--- NOTE | 2023-05-25 05:30 | NUR ---
Nursing Progress Note: Problem: Pt admitted to [facility] from [facility] ER overflow. Pt placed on a 5150 for DTS by law officer at [facility] ED. [employer] received contact from the Veterans Suicide Hotline that client was planning on killing himself by slitting his wrists. [employer] responded and Buster presented as despondent and tearful, stating his frustration with his inability to be "happy go rogerio." Intervention: 1:1 assessment with therapeutic communication and active listening; Medication administration/education/monitoring; ensured contract for safety, provided clear and simple instructions, cleansed right wrist and applied new Band-Aid; maintained Q 15min safety checks. Response: Patient is pleasant and cooperative with care; compliant with medication. No reports of SI, HI, A/VH; no apparent delusions expressed. Patient self isolated to his room; provided HS snack prior to bed. Observed sleeping and does not appear to be having difficulty. Plan: Pt. continues to require a safe and supportive environment. Addendum: 05/25/23 at 0559 by Paola Almendarez RN Nicotine patch was removed at HS.
[2023-05-25 07:30] VITALS: BP 90/62
[2023-05-25] MEDS: QUEtiapine 25mg tablet PO SCH (07:53)
[2023-05-25] MEDS: ALPRAZolam 0.25mg tablet PO SCH ×3 (07:53→18:00)
[2023-05-25] MEDS: sertraline 50mg tablet PO SCH (07:53)
[2023-05-25] MEDS: multivitamins, therapeutics tablet PO SCH (07:53)
[2023-05-25] MEDS: busPIRone 5mg tablet PO SCH ×3 (07:53→21:31)
[2023-05-25] MEDS: folic acid 0.4mg tablet PO SCH (07:54)
[2023-05-25] MEDS: nicotine 21mg patch - 24 hr TD SCH (08:00)
--- NOTE | 2023-05-25 09:50 | NUR ---
Initial: Pt admit DX anxiety, SI, depression, and PTSD per EMR. PO ~85% avg regular diet w/ finger foods and snacks meeting estimated needs. LBM 05/22 per EMR. No nutrition interventions at this time. Will continue to follow. Rec: 1. continue regular diet w/ finger foods per order 2. bowel care per rx 3. weekly wt Addendum: 05/25/23 at [address] Amended: Links added.
--- NOTE | 2023-05-25 17:36 | NUR ---
Nursing Progress Note: Problem: Pt admitted to H from [facility] ER overflow. Pt placed on a 5150 for DTS by law officer at [facility] ED. SHADO received contact from the Veterans Suicide Hotline that client was planning on killing himself by slitting his wrists. [employer] responded and Buster presented as despondent and tearful, stating his frustration with his inability to be "happy go rogerio." Intervention: 1:1 assessment with therapeutic communication and active listening; Medication administration/education/monitoring; ensured contract for safety, provided clear and simple instructions, cleansed right wrist and applied new Band-Aid; maintained Q 15min safety checks. Response: RN received pt. asleep in bed at start of shift. Pt. awoke for breakfast and took all medications. Pt. went back to his room and slept. Pt. awoke mid-morning, 1:1 done at bedside, pt. denies SI/HI, A/V hallucinations. Pt. reports feeling some depression. Pt. isolated to his room most of the day, coming out in the evening to watch TV in the community room. Plan: Pt. continues to require a safe and supportive environment.
[2023-05-25] MEDS ORDERED: AMLO2.5T2 PO (18:03)
[2023-05-25 19:58] VITALS: BP 135/82
[2023-05-25] MEDS: quetiapine 100mg tablet PO SCH (21:31)
[2023-05-25] MEDS: tamsulosin 0.4mg capsule PO SCH (21:31)
[2023-05-25] MEDS: Melatonin 3mg tablet PO SCH (21:31)
--- NOTE | 2023-05-26 02:29 | NUR ---
Nursing Progress Note: Problem: Pt admitted to H from [facility] ER overflow. Pt placed on a 5150 for DTS by law officer at [facility] ED. [email or web address] received contact from the Veterans Suicide Hotline that client was planning on killing himself by slitting his wrists. [employer] responded and Buster presented as despondent and tearful, stating his frustration with his inability to be "happy go rogerio." Intervention: 1:1 assessment with therapeutic communication and active listening; Medication administration/education/monitoring; ensured contract for safety, provided clear and simple instructions, cleansed right wrist and applied new Band-Aid; maintained Q 15min safety checks. Response: Patient is pleasant and cooperative with care; compliant with medication. Only 6mg Melatonin of the 9mg dose provided this shift d/t unavailability until after patient was asleep. Patient denied SI, HI, A/VH this shift; no apparent delusions expressed. He continues to self isolate to his room and did not participate in HS snack. He is observed sleeping and does not appear to be having difficulty. Plan: Pt. continues to require a safe and supportive environment.
--- NOTE | 2023-05-26 05:30 | NUR ---
OLIVE PICKER documentation: I have reviewed and agree with all interventions, assessments performed and documented by James Almendarez
[2023-05-26 08:00] VITALS: BP 154/88
[2023-05-26] MEDS: nicotine 21mg patch - 24 hr TD SCH (08:00)
[2023-05-26] MEDS: folic acid 0.4mg tablet PO SCH (08:20)
[2023-05-26] MEDS: multivitamins, therapeutics tablet PO SCH (08:20)
[2023-05-26] MEDS: QUEtiapine 25mg tablet PO SCH (08:20)
[2023-05-26] MEDS: ALPRAZolam 0.25mg tablet PO SCH ×3 (08:21→18:02)
[2023-05-26] MEDS: sertraline 50mg tablet PO SCH (08:21)
[2023-05-26] MEDS: busPIRone 5mg tablet PO SCH ×3 (08:21→20:36)
--- NOTE | 2023-05-26 17:14 | NUR ---
Nursing Progress Note: Problem: Pt admitted to H from [facility] ER overflow. Pt placed on a 5150 for DTS by law officer at [facility] ED. [employer] received contact from the Veterans Suicide Hotline that client was planning on killing himself by slitting his wrists. [employer] responded and Buster presented as despondent and tearful, stating his frustration with his inability to be "happy go rogerio." Intervention: 1:1 assessment with therapeutic communication and active listening; Medication administration/education/monitoring; ensured contract for safety, provided clear and simple instructions, cleansed right wrist and applied new Band-Aid; maintained Q 15min safety checks. Response: RN received pt. asleep in bed at start of shift. Pt. awoke and took all medication and ate breakfast. Pt. went back to sleep and slept until mid-morning. 1:1 done in community room. Pt. reports feeling good. Pt. states, I think I am going to be going home tomorrow. Pt. denies SI/HI, A/V H. Pt. reports he know he needs to develop friendships and is going to try and get involved in a local rastafari mens group. Plan: Pt. continues to require a safe and supportive environment.
[2023-05-26 19:46] VITALS: BP 138/85
[2023-05-26] MEDS: tamsulosin 0.4mg capsule PO SCH (20:36)
[2023-05-26] MEDS: Melatonin 3mg tablet PO SCH (20:36)
[2023-05-26] MEDS: quetiapine 100mg tablet PO SCH (20:37)
--- NOTE | 2023-05-27 02:29 | NUR ---
Nursing Progress Note: Problem: Pt admitted to H from [facility] ER overflow. Pt placed on a 5150 for DTS by law officer at [facility] ED. [email or web address] received contact from the Veterans Suicide Hotline that client was planning on killing himself by slitting his wrists. [employer] responded and Buster presented as despondent and tearful, stating his frustration with his inability to be "happy go rogerio." Intervention: 1:1 assessment with therapeutic communication and active listening; Medication administration/education/monitoring; ensured contract for safety, provided clear and simple instructions, cleansed right wrist and applied new Band-Aid; maintained Q 15min safety checks. Response: Patient is pleasant and cooperative with care; compliant with medication. He denied SI, HI, a/VH; no apparent delusions expressed. Patient appeared brighter this shift; social with staff and participated in HS snack prior to bed; observed sleeping and does not appear to be having difficulty. Plan: Pt. continues to require a safe and supportive environment.
--- NOTE | 2023-05-27 05:02 | NUR ---
BANKRUPTCY JUDGE documentation: I have reviewed and agree with all interventions, assessments performed and documented by James Almendarez
[2023-05-27] MEDS: ALPRAZolam 0.25mg tablet PO SCH (07:53)
[2023-05-27] MEDS: sertraline 50mg tablet PO SCH (07:53)
[2023-05-27] MEDS: folic acid 0.4mg tablet PO SCH (07:53)
[2023-05-27] MEDS: busPIRone 5mg tablet PO SCH ×2 (07:53→12:16)
[2023-05-27] MEDS: QUEtiapine 25mg tablet PO SCH (07:53)
[2023-05-27] MEDS: multivitamins, therapeutics tablet PO SCH (07:53)
[2023-05-27 08:00] VITALS: BP 132/87
[2023-05-27] MEDS: nicotine 21mg patch - 24 hr TD SCH (08:00)
[2023-05-27] MEDS ORDERED: ALPR0.5T8 PO (11:33)
[2023-05-27] MEDS ORDERED: QUET50TA24 PO (11:33)
[2023-05-27] MEDS ORDERED: BUSP10TA10 PO (11:33)
[2023-05-27] MEDS ORDERED: NICO-687 TD (11:33)
--- NOTE | 2023-05-27 12:37 | NUR ---
DISCHARGE NOTE: Pt. discharged to home, picked up by county sweeper driver. Pt. discharged with all belongings and valuables. RN went over discharge paperwork with pt. including firearms restriction, emergency phone numbers including 911, and discharge medications along with f/u plan. Pt. signed all paperwork. Pt. denies SI/HI, A/V hallucinations. Pt. is A&Ox4 and in no apparent distress.
== END 2023-05-27 12:37 | disposition home or self-care (01) | DRG 885 ==
LOC: ER 22:04 → ADULT MH 05-19 11:25
PROVIDERS: ADMIT Psychiatry & Neurology Psychiatry; ATTEND Psychiatry & Neurology Psychiatry
DX: F33.2 Major depressive disorder, recurrent severe without psychotic features (principal); R45.851 Suicidal ideations; E78.00 Pure hypercholesterolemia, unspecified; N40.0 Benign prostatic hyperplasia without lower urinary tract symptoms; F17.210 Nicotine dependence, cigarettes, uncomplicated; F41.0 Panic disorder [episodic paroxysmal anxiety]; F43.10 Post-traumatic stress disorder, unspecified; I10 Essential (primary) hypertension; Z20.822 Contact with and (suspected) exposure to COVID-19; Z79.899 Other long term (current) drug therapy; Z82.3 Family history of stroke; Z83.3 Family history of diabetes mellitus; Z86.73 Personal history of transient ischemic attack (TIA), and cerebral infarction without residual deficits; Z88.8 Allergy status to other drugs, medicaments and biological substances
CPT/HCPCS: 36415; 80053; 80061; 80305; 80320; 80329; 81001; 83036; 84439; 84443; 84480; 85025; 87081; 87811; 93005; 99285; A6213; A6258; A6446; A6449

== ENCOUNTER 2023-07-15 15:43 | Emergency (ER) | payer OTHER, MEDICARE ==
[~2023-07-15] VITALS: Ht 170.2 cm; Wt 80.0 kg
[~2023-07-15 15:43] MED LIST changes: +ALPR0.5T8 PO; +AMLO2.5T2 PO; +BUSP10TA10 PO; -BUSP15TA3 PO; +FLO0.4C PO; +FOLI0.4T14 PO; +MELA10TA2 PO; +MULT-1085 PO; -MULT-25 PO; +NICO-687 TD; -NICO-907 BC; -NOR5T PO; -PRAZ1CAP5 PO; +QUET-1 PO; -QUET100T34 PO; -QUET25TA36 PO; +QUET50TA24 PO; -ROSU5TAB PO; -SERT-433 PO; +SERT100T PO; -tamsulosin capsule PO
[2023-07-15 16:59] LABS: BASOPHILS # (AUTO) 0.1 X10'3 (0-0.2); BASOPHILS % (AUTO) 0.6 % (0-1); EOSINOPHILS # (AUTO) 0.1 X10'3 (0-0.9); EOSINOPHILS % (AUTO) 0.7 % (0-6); HEMATOCRIT 49.3 % (42.0-52.0); HEMOGLOBIN 16.4 g/dl (14.0-17.9); LYMPHOCYTES # (AUTO) 1.4 X10'3 (1.1-4.8); LYMPHOCYTES % (AUTO) 15.4 % (21-51); MEAN CORPUSCULAR HEMOGLOBIN 29.1 PG (27.0-31.0); MEAN CORPUSCULAR HGB CONC 33.3 g/dL (33.0-36.5); MEAN CORPUSCULAR VOLUME 87.4 FL (78-98); MEAN PLATELET VOLUME 8.9 FL (7.4-10.4); MONOCYTES # (AUTO) 0.6 X10'3 (0-0.9); MONOCYTES % (AUTO) 7.3 % (2-12); NEUTROPHILS # (AUTO) 6.8 X10'3 (1.8-7.7); PLATELET COUNT 231 X10'3 (140-440); RED BLOOD COUNT 5.65 X10'6 (4.70-6.10); RED CELL DISTRIBUTION WIDTH 14.7 % (11.5-14.5); WHITE BLOOD COUNT 8.9 X10'3 (4.5-11.0)
[2023-07-15 17:11] LABS: ALANINE AMINOTRANSFERASE 46 U/L (12-78); ALBUMIN/GLOBULIN RATIO 1.1 (1.1-1.5); ALKALINE PHOSPHATASE 76 IU/L (46-116); ANION GAP 14 (8-16); ASPARTATE AMINO TRANSFERASE 22 U/L (10-37); BILIRUBIN,TOTAL 0.4 MG/DL (0.1-1.0); BLOOD UREA NITROGEN 17 MG/DL (7-18); BUN/CREATININE RATIO 16.3 (10.0-20.0); CALCIUM 9.4 MG/DL (8.5-10.1); CHLORIDE 105 MMOL/L (99-107); CREATININE 1.04 MG/DL (0.60-1.10); GLUCOSE 114 MG/DL (70-104); POTASSIUM 3.8 MMOL/L (3.5-5.1); SODIUM 140 MMOL/L (135-145); TOTAL CARBON DIOXIDE 21.4 MMOL/L (24-32); TOTAL PROTEIN 7.6 G/DL (6.4-8.2); eCRCL 61 ML/MIN; eGFR 70 ML/MIN
[2023-07-15 17:15] LABS: ETHANOL < 10 MG/DL (<10)
[2023-07-15] MEDS ORDERED: LORazepam 1 MG tablet PO ONE (17:55)
[2023-07-15] MEDS ORDERED: LORazepam 0.5 MG tablet PO ONE (18:00)
--- NOTE | 2023-07-15 19:05 | NUR ---
PATIENT ARRIVED TO BED 22 AT THIS TIME. INTERVIEWED, REMOVED BELONGINGS AND GOT INTO GREEN SCRUBS AT THIS TIME. URINE TO BE OBTAINED.
[2023-07-15 20:15] LABS: URINE AMPHETAMINE SCREEN NEGATIVE (Neg); URINE BARBITUATE SCREEN NEGATIVE (Neg); URINE BENZODIAZEPINES SCREEN NEGATIVE (Neg); URINE CANNABINOID SCREEN NEGATIVE (Neg); URINE COCAINE SCREEN NEGATIVE (Neg); URINE METHADONE SCREEN NEGATIVE (Neg); URINE OPIATE SCREEN NEGATIVE (Neg); URINE PHENCYCLIDINE SCREEN NEGATIVE (Neg)
--- NOTE | 2023-07-15 20:57 | NUR ---
pt cooperative and pleasnt on arrival. pt very tearful, pt has been here a couple of times. pt states "im suicidal, im scared". pt currently in bed supine position with eyes closed.
--- NOTE | 2023-07-15 22:45 | NUR ---
PT CONTINUES TO SNOOZE.
--- NOTE | 2023-07-15 22:47 | NUR ---
records sent to [facility]
[2023-07-15] MEDS ORDERED: ALPR-624 PO (22:52)
[2023-07-15] MEDS ORDERED: BUSP10TA11 PO (22:52)
[2023-07-16] MEDS ORDERED: quetiapine 100mg tablet PO ONE (00:10)
[2023-07-16] MEDS ORDERED: ALPRAZolam 0.5mg tablet PO PRN (00:40)
--- NOTE | 2023-07-16 00:42 | NUR ---
PT ASKED FOR BELONGINGS TO LEAVE. PT CONTINUES TO BE TEARFUL AND REQUESTS SOMETHING TO HELP HIM SLEEP. PT STATES "I DIDNT KNOW I WAS ON [place] AND COULDNT LEAVE". PT CURRENTLY IN BED WITH EYES CLOSED LYING SUPINE AND HEARING AIDS ON SIDE TABLE.
--- NOTE | 2023-07-16 02:27 | NUR ---
MD ORDERED SERAQUIL FOR PATIENT TO HELP SLEEP. PATIENT CURRENTLY IN BED LYING ON LEFT SIDE WITH EYES CLOSED. PATIENT WAS CONVINCED THAT THIS NURSE WAS LYING ABOUT THE MG THAT WAS ADMINISTERED TO HIM. PATIENT ASKED TO SEE THE PILL PACKAGE FOR PROOF.
--- NOTE | 2023-07-16 05:24 | NUR ---
PT MAINTAINED IN BED REMAINDER OF NIGHT WITH NO OBVIOUS DISTRESS TO NOTE. WILL CONTINUE TO MONITOR.
--- NOTE | 2023-07-16 07:08 | NUR ---
Nurse received report from NOC shift. Pt asleep in supine positon. Noted rise and fall of chest. No acute distress noted.
[2023-07-16] MEDS ORDERED: amLODIPine 5mg tablet PO SCH (08:00)
[2023-07-16] MEDS ORDERED: sertraline 50mg tablet PO SCH (08:00)
[2023-07-16] MEDS ORDERED: multivitamins, therapeutics tablet PO SCH (08:00)
[2023-07-16 08:04] LABS: BILIRUBIN,URINE NEGATIVE (Neg); CLARITY,URINE CLOUDY (Clear); COLOR,URINE YELLOW (Yellow); GLUCOSE, URINE NEGATIVE (Neg); KETONES,URINE TRACE mg/dl (Neg); LEUKOCYTE ESTERASE ,URINE NEGATIVE (Neg); NITRITES, URINE NEGATIVE (Neg); OCCULT BLOOD,URINE NEGATIVE (Neg); PROTEIN,URINE TRACE mg/dl (Neg); UROBILINOGEN,URINE 0.2 E.U/dL (0.2-1.0)
[2023-07-16 08:11] LABS: UA COLLECTION TYPE CLN CATCH MIDSTREAM
[2023-07-16 08:12] LABS: BACTERIA,URINE NONE SEEN /HPF (Neg); CAL OXALATE CRYSTALS 1+ /HPF (NEGATIVE); MUCUS STRANDS FEW /LPF (Neg); RBC,URINE NONE SEEN /HPF (0-2); SQUAMOUS EPITHELIAL CELL,UR NONE SEEN /LPF (FEW); WBC,URINE 0-4 /HPF (0-4)
--- NOTE | 2023-07-16 08:15 | NUR ---
1:1 done, pt denies SI at this time. States he has been battling his depression/anxiety the last 5 days and couldnt manage anymore on his own. Pt states he feels better this AM.
[2023-07-16 08:39] VITALS: BP_DIAS 77; RESP 16; TEMP 97.1; O2SAT 96
[2023-07-16 08:42] VITALS: BP_SYST 118; PULSE 74
[2023-07-16] MEDS: busPIRone 5mg tablet PO SCH ×2 (08:42→12:56)
--- NOTE | 2023-07-16 09:00 | NUR ---
Pt eating breakfast at bedside.
--- NOTE | 2023-07-16 12:08 | NUR ---
Pt awake sitting on the edge of his bed, no acute distress noted.
--- NOTE | 2023-07-16 12:44 | NUR ---
Pt is being evaluated by [facility].
--- NOTE | 2023-07-16 13:00 | NUR ---
Pt is being discharged, hold has been up-lifted per [facility]. Pt denies SI at this time and stated he felt he was ready to be discharged. Pt shortly after this began to feel really anxious and requested his PRN med. PRN xanax adminsitered and 1300 medication. Pt. is lying down at this time with eyes closed. A cab will be called for pt for discharge.
--- NOTE | 2023-07-16 13:56 | NUR ---
Geeta carrasco in [facility] - 07/16/23 at 1356 by DAWOOD pt elicia ho
--- NOTE | 2023-07-16 13:56 | NUR ---
1348 Printed dc instructions reviewed with pt prior to discharge. All questions and concerns addressed to his verbal satisfaction. Pt denied SI/HI at time of exit. Pt escorted out of unit steady gait with security officers x2. All personal belongings accounted for with pt's verbal acknowledgement of all items returned. Pt presented calm and stable upon exit.
[2023-07-16] MEDS ORDERED: quetiapine 100mg tablet PO SCH (21:00)
[2023-07-16] MEDS ORDERED: Melatonin 3mg tablet PO SCH (21:00)
[2023-07-16] MEDS ORDERED: tamsulosin 0.4mg capsule PO SCH (21:00)
== END 2023-07-16 13:47 | disposition home or self-care (01) ==
LOC: ER 15:44
DX: Z86.59 Personal history of other mental and behavioral disorders (principal); Z20.822 Contact with and (suspected) exposure to COVID-19; E78.00 Pure hypercholesterolemia, unspecified; I10 Essential (primary) hypertension; Z88.8 Allergy status to other drugs, medicaments and biological substances; Z79.899 Other long term (current) drug therapy
CPT/HCPCS: 36415; 80053; 80305; 80320; 81001; 85025; 87811; 93005; 99284

== ENCOUNTER 2023-07-21 13:05 | Inpatient (IN) | payer OTHER, MEDICARE ==
[~2023-07-21] VITALS: Ht 170.2 cm; Wt 79.0 kg
[~2023-07-21 13:05] MED LIST changes: +ALPR-624 PO; -ALPR0.5T8 PO; -BUSP10TA10 PO; +BUSP10TA11 PO; -FOLI0.4T14 PO; -NICO-687 TD; -QUET50TA24 PO
[2023-07-21 13:44] LABS: BASOPHILS # (AUTO) 0.1 X10'3 (0-0.2); BASOPHILS % (AUTO) 0.9 % (0-1); EOSINOPHILS # (AUTO) 0.1 X10'3 (0-0.9); EOSINOPHILS % (AUTO) 0.8 % (0-6); HEMOGLOBIN 15.3 g/dl (14.0-17.9); LYMPHOCYTES # (AUTO) 1.8 X10'3 (1.1-4.8); LYMPHOCYTES % (AUTO) 22.5 % (21-51); MEAN CORPUSCULAR HEMOGLOBIN 28.9 PG (27.0-31.0); MEAN CORPUSCULAR HGB CONC 33.2 g/dL (33.0-36.5); MEAN CORPUSCULAR VOLUME 87.2 FL (78-98); MEAN PLATELET VOLUME 8.9 FL (7.4-10.4); MONOCYTES # (AUTO) 0.6 X10'3 (0-0.9); MONOCYTES % (AUTO) 7.9 % (2-12); NEUTROPHILS # (AUTO) 5.6 X10'3 (1.8-7.7); NEUTROPHILS % (AUTO) 67.9 % (42-75); PLATELET COUNT 237 X10'3 (140-440); RED BLOOD COUNT 5.28 X10'6 (4.70-6.10); RED CELL DISTRIBUTION WIDTH 14.9 % (11.5-14.5); WHITE BLOOD COUNT 8.2 X10'3 (4.5-11.0)
[2023-07-21 13:54] LABS: BILIRUBIN,URINE NEGATIVE (Neg); CLARITY,URINE CLEAR (Clear); COLOR,URINE YELLOW (Yellow); GLUCOSE, URINE NEGATIVE (Neg); KETONES,URINE NEGATIVE (Neg); LEUKOCYTE ESTERASE ,URINE NEGATIVE (Neg); NITRITES, URINE NEGATIVE (Neg); OCCULT BLOOD,URINE NEGATIVE (Neg); PH,URINE 6.5 (4.8-8.0); PROTEIN,URINE NEGATIVE (Neg); UROBILINOGEN,URINE 0.2 E.U/dL (0.2-1.0)
[2023-07-21 13:57] LABS: ALANINE AMINOTRANSFERASE 36 U/L (12-78); ALBUMIN 3.7 G/DL (3.4-5.0); ALBUMIN/GLOBULIN RATIO 1.1 (1.1-1.5); ALKALINE PHOSPHATASE 67 IU/L (46-116); ANION GAP 6 (8-16); ASPARTATE AMINO TRANSFERASE 18 U/L (10-37); BILIRUBIN,TOTAL 0.3 MG/DL (0.1-1.0); BLOOD UREA NITROGEN 13 MG/DL (7-18); BUN/CREATININE RATIO 13.5 (10.0-20.0); CALCIUM 8.4 MG/DL (8.5-10.1); CHLORIDE 105 MMOL/L (99-107); CREATININE 0.96 MG/DL (0.60-1.10); ETHANOL < 10 MG/DL (<10); GLUCOSE 118 MG/DL (70-104); POTASSIUM 3.9 MMOL/L (3.5-5.1); SODIUM 140 MMOL/L (135-145); TOTAL CARBON DIOXIDE 29.1 MMOL/L (24-32); eCRCL 66 ML/MIN; eGFR 77 ML/MIN
[2023-07-21 14:02] LABS: URINE AMPHETAMINE SCREEN NEGATIVE (Neg); URINE BARBITUATE SCREEN NEGATIVE (Neg); URINE BENZODIAZEPINES SCREEN POSITIVE (Neg); URINE CANNABINOID SCREEN NEGATIVE (Neg); URINE COCAINE SCREEN NEGATIVE (Neg); URINE METHADONE SCREEN NEGATIVE (Neg); URINE OPIATE SCREEN NEGATIVE (Neg); URINE PHENCYCLIDINE SCREEN NEGATIVE (Neg)
--- NOTE | 2023-07-21 14:04 | NUR ---
Pt. ambulated over from the main ER accompanied by Perry. He is in a room changing into green scrubs at this time.
[2023-07-21 14:09] LABS: UA COLLECTION TYPE VOIDED
--- NOTE | 2023-07-21 14:52 | NUR ---
FAXED PACKET TO [facility].
--- NOTE | 2023-07-21 15:30 | NUR ---
1:1 was completed with pt. at bedside, he presents as somewhat hyper verbal with a circumstantial thought process. Pt. denies any current S/I and is able to contract for safety, however he reports earlier he was having thoughts of overdosing on his medications or cutting his wrists. Pt. continues on to report that he was switched from taking Xanax to Ativan because the Xanax made him "Feel high." However, he was running out of his Ativan; per his pharmacy he did not have any refills; and his current psychiatrist is on vacation. Pt. also admitted to overusing his Ativan which is currently prescribed as 2mg BID. He reported that he has not been able to sleep X2 days and became very depressed. Pt. is hoping to transfer from here to a V/A facility he was at before in [place]. This handbook writer spoke to MIR Senior at the [facility]. They are aware that pt. has been overtaking his Ativan which they prescribed to him.
--- NOTE | 2023-07-21 15:51 | NUR ---
Spoke to Nadeen RN at the [facility] regading pt's current medications. Confimed dose of Ativan 2mg BID scheduled.
--- NOTE | 2023-07-21 15:53 | NUR ---
Per [facility], pt's current 5150 hold will be upheld. Pt. was informed and continues to rest comfortably at this time.
[2023-07-21] MEDS ORDERED: LORA2TAB96 PO (16:24)
[2023-07-21] MEDS ORDERED: SERT100T PO (16:24)
[2023-07-21] MEDS ORDERED: ROSU5TAB12 PO (16:24)
[2023-07-21] MEDS ORDERED: CHOL20004 PO (16:24)
[2023-07-21] MEDS ORDERED: AMLO5TAB4 PO (16:24)
[2023-07-21] MEDS ORDERED: BUSP10TA11 PO (16:24)
[2023-07-21] MEDS ORDERED: QUET-1 PO ×2 (16:24)
--- NOTE | 2023-07-21 17:42 | NUR ---
Pt. is sitting up eating dinner at this time. He was moved to bed 26 to make room for a new pt. coming to the unit.
--- NOTE | 2023-07-21 19:01 | NUR ---
The patient is resting on his bed. He was alert, oriented and cooperative. He was asked about suicidal thoughts and he stated that "in the morning really bad but no so bad right now" He admits to current suicidal thoughts with a plan to overdose as well as just not wanting to be alive. He denies psychotic symptoms. He is wanting to have his HS medications as soon as possible.
[2023-07-21] MEDS: ROSUVASTATIN CALCIUM 5 MG TABLET PO SCH (20:12)
[2023-07-21] MEDS: busPIRone 5mg tablet PO SCH (20:12)
[2023-07-21] MEDS: quetiapine 100mg tablet PO SCH (20:12)
[2023-07-21] MEDS: LORazepam 1 MG tablet PO SCH (20:12)
--- NOTE | 2023-07-21 21:57 | NUR ---
The patient appears to be sleeping
--- NOTE | 2023-07-21 23:02 | NUR ---
The patient appears to be sleeping
--- NOTE | 2023-07-22 01:03 | NUR ---
The patient appears to be sleeping
--- NOTE | 2023-07-22 02:58 | NUR ---
The patient appears to be sleeping
--- NOTE | 2023-07-22 05:01 | NUR ---
The patient is resting on his bed
--- NOTE | 2023-07-22 06:30 | NUR ---
Received pt. sleeping in bed at the beginning of the shift, rise and fall of chest noted.
--- NOTE | 2023-07-22 08:30 | NUR ---
Pt. was awoken for breakfast, he is sitting up at bedside eating at this time. 1:1 was completed, pt. presents as cooperative and animated. He denies any current S/I, however endorses some ongoing depression and anxiety. When questioned by this fha underwriter regarding the cause for this, he stated with a smile, "Just life."
[2023-07-22] MEDS: LORazepam 1 MG tablet PO SCH ×2 (08:40→20:05)
[2023-07-22] MEDS: busPIRone 5mg tablet PO SCH ×3 (08:40→20:05)
[2023-07-22] MEDS: quetiapine 100mg tablet PO SCH ×2 (08:41→20:05)
[2023-07-22] MEDS: cholecalciferol (vitamin D3) 1,000 unit (25mcg) tablet PO SCH (08:41)
[2023-07-22] MEDS: sertraline 50mg tablet PO SCH (08:41)
[2023-07-22] MEDS: amLODIPine 5mg tablet PO SCH (08:41)
--- NOTE | 2023-07-22 10:30 | NUR ---
Pt. is sleeping at this time, respirations are even and unlabored.
--- NOTE | 2023-07-22 12:30 | NUR ---
Pt. is sitting up in bed eating lunch at this time.
--- NOTE | 2023-07-22 14:34 | NUR ---
Pt. is sleeping in bed laying on his left side at this time, he appears to be resting comfortably.
--- NOTE | 2023-07-22 16:26 | NUR ---
Pt. continues to sleep at this time, rr are even and unlabored.
--- NOTE | 2023-07-22 16:35 | NUR ---
[facility] called regarding possible placement for patient. Nurse Guevara would like to discuss the case further with [facility] certified social workers in health care as pt. is no longer reporting S/I. This loan underwriter will provide certified social workers in health care with [facility]'s direct phone number to talk to nursing staff regarding pt's current mental health hold.
--- NOTE | 2023-07-22 16:57 | NUR ---
This senior technical writer spoke with [facility] social media community manager, Carlos. He will not be speaking with [place] W[facility]ER at this time as pt. is currently on a mental health hold that was written yesterday. [facility] is requesting that [facility] re-evaluate pt., however per Carlos this will not be happening at this time. Avni was provided with information on the [facility] who initially wrote the mental health hold, however they refused to contact [facility]. [facility] was informed that pt. will not be re-evaluated at this time and they will not be accepting patient. [facility] was informed of this and they are considering pt. for placement.
--- NOTE | 2023-07-22 17:45 | NUR ---
Pt. is sitting up eating dinner at this time.
--- NOTE | 2023-07-22 19:00 | NUR ---
The patient sitting on his bed after eating dinner.
[2023-07-22] MEDS: ROSUVASTATIN CALCIUM 5 MG TABLET PO SCH (20:05)
--- NOTE | 2023-07-22 20:30 | NUR ---
The patient was sleeping on his bed when awakened for medications. He stated that he slept all the day because he was not sleeping well prior to admit. He stated that he felt "uptight" He stated that if he was sent to [facility] he would kill himself.
--- NOTE | 2023-07-22 22:55 | NUR ---
The patient appears to be sleeping
--- NOTE | 2023-07-23 00:27 | NUR ---
The patient appears to be sleeping
--- NOTE | 2023-07-23 03:02 | NUR ---
The patient appears to be sleeping
--- NOTE | 2023-07-23 04:57 | NUR ---
The patient appears to be sleeping
--- NOTE | 2023-07-23 07:50 | NUR ---
The patient is resting on his bed.
[2023-07-23] MEDS: quetiapine 100mg tablet PO SCH ×2 (08:05→21:49)
[2023-07-23] MEDS: busPIRone 5mg tablet PO SCH ×3 (08:05→21:49)
[2023-07-23] MEDS: sertraline 50mg tablet PO SCH (08:05)
[2023-07-23] MEDS: cholecalciferol (vitamin D3) 1,000 unit (25mcg) tablet PO SCH (08:06)
[2023-07-23] MEDS: LORazepam 1 MG tablet PO SCH (08:06)
[2023-07-23] MEDS: amLODIPine 5mg tablet PO SCH (08:07)
--- NOTE | 2023-07-23 08:26 | NUR ---
The patient is denying that he is suicidal. Stated he [facility]. He was made aware that [facility] would be seeing him today.
--- NOTE | 2023-07-23 09:58 | NUR ---
The patient has been accpeted at [facility] psychiatriac pending pcr covid test
[2023-07-23 10:27] LABS: COVID19 ID NOW NEGATIVE (Neg)
--- NOTE | 2023-07-23 11:43 | NUR ---
The patient is resting on his bed. [facility] is attempting to coordinate transfer to [facility]
[2023-07-23] MEDS ORDERED: acetaminophen 325mg tablet PO PRN ×2 (14:05)
[2023-07-23] MEDS ORDERED: magnesium hydroxide 30ml (MOM) UD suspension PO PRN (14:05)
[2023-07-23] MEDS ORDERED: mag hydrox/Alum hydrox/simeth 30ml oral suspension PO PRN (14:05)
[2023-07-23] MEDS ORDERED: NICOTINE POLACRILEX 2 MG LOZENGE BC PRN (14:05)
[2023-07-23] MEDS ORDERED: loperamide 2mg capsule PO PRN (14:05)
--- NOTE | 2023-07-23 14:30 | NUR ---
Admit note: [facility] for [facility] from our emergency room at 1300. [facility] reporting plan, preparation and intent to end his live via OD. Pt has history of ultiple suicide attemtps and incluting while inpatient. Histrory of PTSD, mood disorder
[2023-07-23 19:00] VITALS: BP 148/95; PULSE 95; RESP 16; RESP 18; TEMP 98.5; O2SAT 94
[2023-07-23] MEDS ORDERED: LORazepam 1 MG tablet PO ONE (20:00)
[2023-07-23] MEDS: ROSUVASTATIN CALCIUM 5 MG TABLET PO SCH (21:49)
--- NOTE | 2023-07-24 04:14 | NUR ---
RN PROGRESS NOTE: PROBLEM: Client reported plan to overdose. INTERVENTIONS: Assessments. RESPONSE: Client was irritable and stated "These doctors have the time's for my medications all wrong!" Client was angry he did not get his meds at 20:00. All of clients PM meds (except for Ativan) were scheduled for 21:00. Client got dressed and began door checking. Mood and affect were irritable. PLAN: Medication adjustment.
[2023-07-24 07:21] VITALS: RESP 16; O2SAT 94
[2023-07-24] MEDS: busPIRone 5mg tablet PO SCH ×2 (07:44→13:47)
[2023-07-24] MEDS: amLODIPine 5mg tablet PO SCH (07:45)
[2023-07-24] MEDS: sertraline 50mg tablet PO SCH (07:45)
[2023-07-24] MEDS: quetiapine 100mg tablet PO SCH (07:46)
[2023-07-24] MEDS: cholecalciferol (vitamin D3) 1,000 unit (25mcg) tablet PO SCH (07:46)
[2023-07-24 08:00] VITALS: BP 117/84; PULSE 89; RESP 18; TEMP 97.9; O2SAT 96
[2023-07-24] MEDS ORDERED: LORazepam 1 MG tablet PO SCH ×2 (08:00→14:05)
[2023-07-24 09:15] LABS: CHOL/HDL RATIO 3.7 (0.00-4.99); CHOLESTEROL 142 MG/DL (0-200); HDL CHOLESTEROL 38 MG/DL (35-60); LDL CHOLESTEROL 85 MG/DL (50-100); TRIGLYCERIDES 109 MG/DL (20-135)
[2023-07-24 09:20] LABS: HEMOGLOBIN A1C 6.1 % (4.5-6.2)
== END 2023-07-24 16:39 | disposition home or self-care (01) | DRG 885 ==
LOC: ER 13:06 → ED HOLD 07-23 09:45 → ADULT MH 07-23 12:58
PROVIDERS: ADMIT Psychiatry & Neurology Psychiatry; ATTEND Psychiatry & Neurology Psychiatry
DX: F33.2 Major depressive disorder, recurrent severe without psychotic features (principal); R45.851 Suicidal ideations; E78.00 Pure hypercholesterolemia, unspecified; I10 Essential (primary) hypertension; F60.7 Dependent personality disorder; F43.10 Post-traumatic stress disorder, unspecified; Z20.822 Contact with and (suspected) exposure to COVID-19; F17.210 Nicotine dependence, cigarettes, uncomplicated; F41.9 Anxiety disorder, unspecified; Z88.8 Allergy status to other drugs, medicaments and biological substances; Z79.899 Other long term (current) drug therapy; Z83.3 Family history of diabetes mellitus; Z86.73 Personal history of transient ischemic attack (TIA), and cerebral infarction without residual deficits; Z91.52 Personal history of nonsuicidal self-harm; Z82.3 Family history of stroke
CPT/HCPCS: 36415; 80053; 80061; 80305; 80320; 81003; 83036; 85025; 87081; 87635; 87811; 99285

== ENCOUNTER 2024-01-03 14:28 | Emergency (ER) | payer MEDICARE, OTHER ==
[~2024-01-03] VITALS: Ht 170.2 cm; Wt 78.0 kg
[~2024-01-03 14:28] MED LIST changes: -ALPR-624 PO; -AMLO2.5T2 PO; +AMLO5TAB4 PO; +CHOL20004 PO; -FLO0.4C PO; +LORA2TAB96 PO; -MELA10TA2 PO; -MULT-1085 PO; +ROSU5TAB12 PO
[2024-01-03 14:50] LABS: BASOPHILS # (AUTO) 0.1 X10'3 (0-0.2); BASOPHILS % (AUTO) 0.7 % (0-1); EOSINOPHILS # (AUTO) 0.1 X10'3 (0-0.9); EOSINOPHILS % (AUTO) 1.7 % (0-6); HEMATOCRIT 47.6 % (42.0-52.0); LYMPHOCYTES # (AUTO) 1.9 X10'3 (1.1-4.8); LYMPHOCYTES % (AUTO) 25.7 % (21-51); MEAN CORPUSCULAR HEMOGLOBIN 29.2 PG (27.0-31.0); MEAN CORPUSCULAR HGB CONC 33.7 g/dL (33.0-36.5); MEAN CORPUSCULAR VOLUME 86.6 FL (78-98); MEAN PLATELET VOLUME 8.6 FL (7.4-10.4); MONOCYTES # (AUTO) 0.6 X10'3 (0-0.9); MONOCYTES % (AUTO) 8.4 % (2-12); NEUTROPHILS # (AUTO) 4.8 X10'3 (1.8-7.7); NEUTROPHILS % (AUTO) 63.5 % (42-75); PLATELET COUNT 273 X10'3 (140-440); RED CELL DISTRIBUTION WIDTH 14.1 % (11.5-14.5); WHITE BLOOD COUNT 7.6 X10'3 (4.5-11.0)
[2024-01-03 15:12] LABS: ALANINE AMINOTRANSFERASE 28 U/L (12-78); ALBUMIN 3.8 G/DL (3.4-5.0); ALBUMIN/GLOBULIN RATIO 1.1 (1.1-1.5); ALKALINE PHOSPHATASE 74 IU/L (46-116); ANION GAP 8 (8-16); ASPARTATE AMINO TRANSFERASE 17 U/L (10-37); BILIRUBIN,TOTAL 0.3 MG/DL (0.1-1.0); BLOOD UREA NITROGEN 13 MG/DL (7-18); BUN/CREATININE RATIO 12.9 (10.0-20.0); CALCIUM 8.6 MG/DL (8.5-10.1); CHLORIDE 103 MMOL/L (99-107); CREATININE 1.01 MG/DL (0.60-1.10); GLUCOSE 191 MG/DL (70-104); POTASSIUM 4.1 MMOL/L (3.5-5.1); SODIUM 138 MMOL/L (135-145); TOTAL CARBON DIOXIDE 26.8 MMOL/L (24-32); TOTAL PROTEIN 7.4 G/DL (6.4-8.2); eGFR 73 ML/MIN
[2024-01-03 15:13] VITALS: BP 151/105; PULSE 118; RESP 18; TEMP 98.8; O2SAT 98
[2024-01-03 15:20] LABS: PRO BRAIN NATRIURETIC PEPTIDE 212 PG/ML (0-125)
[2024-01-03 16:06] LABS: ETHANOL < 10 MG/DL (<10)
== END 2024-01-03 16:49 | disposition left against medical advice (07) ==
LOC: ER 14:29
DX: R07.89 Other chest pain (principal); R20.0 Anesthesia of skin; E78.00 Pure hypercholesterolemia, unspecified; I10 Essential (primary) hypertension; Z88.8 Allergy status to other drugs, medicaments and biological substances; Z79.899 Other long term (current) drug therapy
CPT/HCPCS: 36415; 71045; 80053; 80320; 83880; 84484; 85025; 93005; 99285

== ENCOUNTER 2024-01-03 20:53 | Emergency (ER) | payer OTHER, MEDICARE | END 2024-01-03 21:51 | disposition left against medical advice (07) | LOC: ER 20:54 | DX: I10 Essential (primary) hypertension (principal); Z53.21 Procedure and treatment not carried out due to patient leaving prior to being seen by health care provider ==

== ENCOUNTER 2024-07-07 21:04 | Emergency (ER) | payer OTHER, MEDICARE ==
[~2024-07-07] VITALS: Ht 170.2 cm; Wt 80.4 kg
[~2024-07-07 21:04] MED LIST changes: -ROSU5TAB12 PO; +ROSU5TAB43 PO
[2024-07-07] MEDS ORDERED: ALPR-624 PO (21:39)
[2024-07-07] MEDS ORDERED: OLAN5TAB5 PO (21:39)
[2024-07-07 21:46] LABS: BASOPHILS # (AUTO) 0.1 X10'3 (0-0.2); BASOPHILS % (AUTO) 0.9 % (0-1); EOSINOPHILS # (AUTO) 0.2 X10'3 (0-0.9); EOSINOPHILS % (AUTO) 2.9 % (0-6); HEMATOCRIT 45.8 % (42.0-52.0); HEMOGLOBIN 15.5 g/dl (14.0-17.9); LYMPHOCYTES # (AUTO) 2.8 X10'3 (1.1-4.8); LYMPHOCYTES % (AUTO) 40.7 % (21-51); MEAN CORPUSCULAR HEMOGLOBIN 29.5 PG (27.0-31.0); MEAN CORPUSCULAR HGB CONC 33.8 g/dL (33.0-36.5); MEAN CORPUSCULAR VOLUME 87.4 FL (78-98); MEAN PLATELET VOLUME 8.5 FL (7.4-10.4); MONOCYTES # (AUTO) 0.6 X10'3 (0-0.9); MONOCYTES % (AUTO) 9.3 % (2-12); NEUTROPHILS # (AUTO) 3.1 X10'3 (1.8-7.7); NEUTROPHILS % (AUTO) 46.2 % (42-75); PLATELET COUNT 234 X10'3 (140-440); RED BLOOD COUNT 5.24 X10'6 (4.70-6.10); RED CELL DISTRIBUTION WIDTH 14.4 % (11.5-14.5); WHITE BLOOD COUNT 6.8 X10'3 (4.5-11.0)
[2024-07-07 21:58] LABS: ALBUMIN 3.5 G/DL (3.4-5.0); ANION GAP 6 (8-16); BLOOD UREA NITROGEN 14 MG/DL (7-18); BUN/CREATININE RATIO 11.8 (10.0-20.0); CALCIUM 8.9 MG/DL (8.5-10.1); CHLORIDE 105 MMOL/L (99-107); CREATININE 1.19 MG/DL (0.60-1.10); ETHANOL < 10 MG/DL (<10); GLUCOSE 110 MG/DL (70-104); POTASSIUM 3.7 MMOL/L (3.5-5.1); SODIUM 139 MMOL/L (135-145); TOTAL CARBON DIOXIDE 27.8 MMOL/L (24-32); eCRCL 52 ML/MIN; eGFR 60 ML/MIN
[2024-07-07 23:05] LABS: URINE AMPHETAMINE SCREEN NEGATIVE (Neg); URINE BARBITUATE SCREEN NEGATIVE (Neg); URINE BENZODIAZEPINES SCREEN POSITIVE (Neg); URINE CANNABINOID SCREEN POSITIVE (Neg); URINE COCAINE SCREEN NEGATIVE (Neg); URINE METHADONE SCREEN NEGATIVE (Neg); URINE OPIATE SCREEN NEGATIVE (Neg); URINE PHENCYCLIDINE SCREEN NEGATIVE (Neg)
[2024-07-08] MEDS: amLODIPine 5mg tablet PO SCH (09:03)
[2024-07-08] MEDS: ALPRAZolam 0.5mg tablet PO PRN (14:57)
[2024-07-08] MEDS: ALPRAZolam 0.5mg tablet PO ONE (18:57)
[2024-07-08] MEDS: NICOTINE POLACRILEX 2 MG LOZENGE BC PRN (18:58)
[2024-07-08 19:55] LABS: BILIRUBIN,URINE NEGATIVE (Neg); CLARITY,URINE CLOUDY (Clear); COLOR,URINE YELLOW (Yellow); GLUCOSE, URINE NEGATIVE (Neg); KETONES,URINE NEGATIVE (Neg); LEUKOCYTE ESTERASE ,URINE NEGATIVE (Neg); NITRITES, URINE NEGATIVE (Neg); OCCULT BLOOD,URINE NEGATIVE (Neg); PROTEIN,URINE NEGATIVE (Neg)
[2024-07-08 20:03] LABS: UA COLLECTION TYPE CLN CATCH MIDSTREAM
[2024-07-08 20:13] LABS: AMORPHOUS PHOSPHATES 3+
[2024-07-08 20:14] LABS: RBC,URINE 0-2 /HPF (0-2); SQUAMOUS EPITHELIAL CELL,UR FEW /LPF (FEW); WBC,URINE 0-4 /HPF (0-4)
[2024-07-08 20:15] LABS: BACTERIA,URINE NONE SEEN /HPF (Neg); CAL OXALATE CRYSTALS 1+ /HPF (NEGATIVE)
[2024-07-08] MEDS: OLANZapine 5mg rapidly disint. tablet PO SCH (20:56)
[2024-07-08] MEDS: traZODone 150mg tablet PO SCH (20:57)
[2024-07-08 22:30] LABS: COVID19 ID NOW INVALID (Neg)
[2024-07-08 23:10] LABS: COVID19 ID NOW NEGATIVE (Neg)
[2024-07-09 06:04] VITALS: BP_DIAS 75; RESP 16; O2SAT 94
[2024-07-09 08:19] VITALS: BP_SYST 130; PULSE 60
[2024-07-09 13:28] VITALS: TEMP 97.3
== END 2024-07-09 13:31 ==
LOC: ER 21:05
DX: R45.851 Suicidal ideations (principal); E78.00 Pure hypercholesterolemia, unspecified; I10 Essential (primary) hypertension; F32.A Depression, unspecified; Z88.8 Allergy status to other drugs, medicaments and biological substances; Z79.899 Other long term (current) drug therapy
CPT/HCPCS: 36415; 80048; 80305; 80320; 81001; 85025; 87635; 87811; 99284; 99285

== ENCOUNTER 2025-05-14 13:19 | Inpatient (IN) | payer OTHER, MEDICARE ==
[~2025-05-14] VITALS: Ht 170.2 cm; Wt 73.4 kg
[~2025-05-14 13:19] MED LIST changes: +ALPR-624 PO; -BUSP10TA11 PO; -CHOL20004 PO; -LORA2TAB96 PO; +OLAN5TAB5 PO; -QUET-1 PO; -ROSU5TAB43 PO; -SERT100T PO
[2025-05-14 14:39] LABS: BILIRUBIN,URINE NEGATIVE (Neg); CLARITY,URINE CLEAR (Clear); COLOR,URINE YELLOW (Yellow); GLUCOSE, URINE NEGATIVE (Neg); KETONES,URINE TRACE mg/dl (Neg); LEUKOCYTE ESTERASE ,URINE NEGATIVE (Neg); NITRITES, URINE NEGATIVE (Neg); OCCULT BLOOD,URINE NEGATIVE (Neg); PROTEIN,URINE NEGATIVE (Neg)
[2025-05-14 14:41] LABS: BASOPHILS # (AUTO) 0.1 X10'3 (0-0.2); BASOPHILS % (AUTO) 0.7 % (0-1); EOSINOPHILS # (AUTO) 0.1 X10'3 (0-0.9); EOSINOPHILS % (AUTO) 1.1 % (0-6); HEMATOCRIT 42.7 % (42.0-52.0); HEMOGLOBIN 14.6 g/dl (14.0-17.9); LYMPHOCYTES # (AUTO) 1.8 X10'3 (1.1-4.8); LYMPHOCYTES % (AUTO) 25.9 % (21-51); MEAN CORPUSCULAR HEMOGLOBIN 30.1 PG (27.0-31.0); MEAN CORPUSCULAR HGB CONC 34.1 g/dL (33.0-36.5); MEAN CORPUSCULAR VOLUME 88.3 FL (78-98); MEAN PLATELET VOLUME 8.4 FL (7.4-10.4); MONOCYTES # (AUTO) 0.4 X10'3 (0-0.9); MONOCYTES % (AUTO) 6.4 % (2-12); NEUTROPHILS # (AUTO) 4.5 X10'3 (1.8-7.7); NEUTROPHILS % (AUTO) 65.9 % (42-75); PLATELET COUNT 231 X10'3 (140-440); RED BLOOD COUNT 4.84 X10'6 (4.70-6.10); RED CELL DISTRIBUTION WIDTH 14.1 % (11.5-14.5); WHITE BLOOD COUNT 6.9 X10'3 (4.5-11.0)
[2025-05-14 14:48] LABS: UA COLLECTION TYPE CLN CATCH MIDSTREAM
[2025-05-14 14:56] LABS: URINE AMPHETAMINE SCREEN NEGATIVE (Neg); URINE BARBITUATE SCREEN NEGATIVE (Neg); URINE BENZODIAZEPINES SCREEN POSITIVE (Neg); URINE CANNABINOID SCREEN NEGATIVE (Neg); URINE COCAINE SCREEN NEGATIVE (Neg); URINE METHADONE SCREEN NEGATIVE (Neg); URINE OPIATE SCREEN NEGATIVE (Neg); URINE PHENCYCLIDINE SCREEN NEGATIVE (Neg)
[2025-05-14 15:03] LABS: ALBUMIN 3.8 G/DL (3.4-5.0); ANION GAP 9 (8-16); BLOOD UREA NITROGEN 14 MG/DL (7-18); BUN/CREATININE RATIO 12.7 (10.0-20.0); CALCIUM 8.5 MG/DL (8.5-10.1); CHLORIDE 107 MMOL/L (99-107); ETHANOL < 10 MG/DL (<10); GLUCOSE 97 MG/DL (70-104); POTASSIUM 3.8 MMOL/L (3.5-5.1); SODIUM 143 MMOL/L (135-145); THYROID STIMULATING HORMONE 1.92 ulU/ml (0.34-4.50); TOTAL CARBON DIOXIDE 26.8 MMOL/L (24-32); eCRCL 57 ML/MIN; eGFR 66 ML/MIN
--- NOTE | 2025-05-14 15:07 | Physician Documentation ---
History of Present Illness ~ Chief Complaint: 5150 Stated Complaint: JOE ROSA Time Seen by MD: 13:30 Primary Medical Doctor: [facility]PI 74-year-old male presents to the ED with a complaint of SI today. States that he has intentions to overdose via prescribed medications. He says he is currently staying in a housing that is provided to him by the [facility] to prevent him from being homeless. he states just done with life. patient is appropriate to the situation Day of Onset: May 14, 2025 Medication Reconciliation Allergies: Coded Allergies: atorvastatin (Verified Adverse Reaction, Intermediate, muscle pain, 01/03/24) simvastatin (Verified Adverse Reaction, Intermediate, muscle pain, 01/03/24) Scheduled Amlodipine Besylate (Norvasc), 1 TAB PO DAILY, (Reported) Discontinued Medications Alprazolam (Xanax), 1 TAB PO TID PRN PRN for anxiety, (Reported) Discontinued Reason: patient no longer taking Olanzapine* (Zyprexa Zydis Odt*), 1 TAB PO HS, (Reported) Discontinued Reason: patient no longer taking Past Medical History Past Medical History: High Cholesterol, Hypertension, *PSYCH*, Depression Past Surgical History: noncontributory Patient History: FH: diabetes mellitus MOTHER, Onset:Unknown FAMILY/OTHER, Onset:Unknown FAMILY/OTHER, Onset:Unknown FH: stroke FATHER, Onset:60 years & older Alcohol Use: Rarely Drug Use: none Lives In: Home Occupation: retired Review of Systems All Other Systems at this time: Reviewed and Negative ROS As stated above in the HPI, otherwise all systems are reviewed and negative. Physical Exam Vital Signs: Temperature: 98.0, Source: Temporal, Heart Rate: 105, Respiratory Rate: 16, BP: 172/96, Pulse Oximetry: 95, Weight: 74.200 Oxygen Flow Rate: 0 Physical Exam General: Alert, no apparent distress. Extremities: Normal range of motion, no deformity. Neurologic: Oriented x4. Psychiatric: anxious appearing Skin: Normal color, warm and dry. No edema, no ecchymosis. Progress Results/Orders Results/Orders Orders - AMRIT SARMIENTO NP Med Rec (05/14/25 14:18) Close Observation Level (05/14/25 14:18) Covid19 Binax Poc Result Entry (05/14/25 14:18) Regular Diet (05/14/25 Dinner) Completed Orders - AMRIT SARMIENTO NP Cbc/Diff (05/14/25 14:18) Urinalysis (05/14/25 14:18) Drug Screen, Urine (05/14/25 14:18) Ethanol (05/14/25 14:18) TSH (05/14/25 14:18) BMP (05/14/25 14:18) Vital Signs 05/14/25 13:20 Temp 98.0 Pulse 105 Resp 16 B/P (MAP) 172/96 Pulse Ox 95 O2 Flow Rate 0 Laboratory Tests Test 05/14/25 13:50 05/14/25 13:56 05/14/25 14:23 SARS-CoV-2 Antigen (Rapid) Negative Urine Specimen Description Cln catch midstream Urine Color Yellow Urine Clarity Clear Urine pH 6.0 Urine Specific [place] 1.020 Urine Protein Negative Urine Glucose (UA) Negative Urine Ketones Trace H Urine Occult Blood Negative Urine Nitrite Negative Urine Bilirubin Negative Urine Urobilinogen 1.0 Urine Leukocyte Esterase Negative Volume Urine Centrifuged 10 ml Urine Comment Urine Opiates Screen Negative Urine Methadone Screen Negative Urine Fentanyl Screen Negative Urine Barbiturates Screen Negative Urine Phencyclidine Screen Negative Urine Amphetamines Screen Negative Urine Benzodiazepines Screen Positive Urine Cocaine Screen Negative Urine Cannabinoids Screen Negative Drug Screen Comment White Blood Count 6.9 Red Blood Count 4.84 Hemoglobin 14.6 Hematocrit 42.7 Mean Corpuscular Volume 88.3 Mean Corpuscular Hemoglobin 30.1 Mean Corpuscular Hemoglobin Concent 34.1 Red Cell Distribution Width 14.1 Platelet Count 231 Mean Platelet Volume 8.4 Neutrophils (%) (Auto) 65.9 Lymphocytes (%) (Auto) 25.9 Monocytes (%) (Auto) 6.4 Eosinophils (%) (Auto) 1.1 Basophils (%) (Auto) 0.7 Neutrophils # (Auto) 4.5 Lymphocytes # (Auto) 1.8 Monocytes # (Auto) 0.4 Eosinophils # (Auto) 0.1 Basophils # (Auto) 0.1 CBC Comment Sodium Level 143 Potassium Level 3.8 Chloride Level 107 Carbon Dioxide Level 26.8 Anion Gap 9 Blood Urea Nitrogen 14 Creatinine 1.10 Estimated GFR/1.73 m2 66 BUN/Creatinine Ratio 12.7 Glucose Level 97 Calcium Level 8.5 Albumin 3.8 Thyroid Stimulating Hormone (TSH) 1.92 Chemistry Comments Ethyl Alcohol Level < 10 Medical Decision Making Findings Patient does not present with any acute findings that would require emergent consultation or further evaluation I am going to wait for his laboratory values come back in his lungs the heart any concerns and going to request a [facility] evaluate patient Differential Dx:Considerations: Include: Alcohol abuse, Anxiety, Bipolar disorder, Conversion disorder, Depression, Encephaloathy, Homicidal, Panic disorder, Personality disorder, Schizophrenia, Substance abuse, Suicidal, Other Departure Disposition: HOME / SELF CARE / HOMELESS Impression: Primary Impression: Anxiety disorder Additional Impression: Depression Condition: Stable Additional Instructions: Transfer orders for [facility]: At this time there is no evidence of an emergent medical condition that would preclude (admission/transfer) to a psychiatric unit via [facility] protocol for further psychiatric, as well as medical evaluation and treatment. At this time I have no reason to believe that transfer via [facility] protocol would have serious medical compromise in the patient's health. Referrals: NO PRIMARY CARE PROVIDER (PCP) Signature Scribe Signature: f Attestation: Scribed for Amrit Sarmiento Business Project Manager by Amrit Ingram NP . 05/14/25 15:05 AMRIT SARMIENTO NP May 14, 2025 15:07
[2025-05-14] MEDS: OLANZapine 5mg rapidly disint. tablet PO ONE (16:20)
[2025-05-14] MEDS: LORazepam 1 MG tablet PO ONE (16:20)
[2025-05-14] MEDS ORDERED: TOBR5DRO47 LEFTEYE (16:29)
[2025-05-14] MEDS ORDERED: tobramycin/dexamethasone ophthalmic suspension LEFTEYE SCH (16:55)
[2025-05-14] MEDS: tobramycin/dexamethasone ophthalmic suspension LEFTEYE SCH (19:00)
[2025-05-14 23:34] VITALS: BP 128/86; PULSE 60; RESP 15; TEMP 97.8; O2SAT 95
[2025-05-14] MEDS ORDERED: loperamide 2mg capsule PO PRN (23:35)
[2025-05-14] MEDS ORDERED: acetaminophen 325mg tablet PO PRN ×2 (23:35)
[2025-05-14] MEDS ORDERED: diphenhydrAMINE 25mg capsule PO PRN (23:35)
[2025-05-14] MEDS ORDERED: mag hydrox/Alum hydrox/simeth 30ml oral suspension PO PRN (23:35)
[2025-05-15] VITALS (8 sets, daily range): BP systolic 112–138; BP diastolic 82–87; PULSE 65–82; RESP 14–20; TEMP 97.3–98.9; O2SAT 92–97
[2025-05-15] MEDS: tobramycin/dexamethasone ophthalmic suspension LEFTEYE ONE (01:30)
[2025-05-15] MEDS: LORazepam 1 MG tablet PO ONE ×2 (01:49→14:56)
[2025-05-15] MEDS: traZODone 50mg tablet PO PRN (01:50)
[2025-05-15 05:19] LABS: ABG BASE EXCESS -1.2 mmol/L (-2.0-3.0); ABG HCO3 22.4 mmol/L (21.0-28.0); ABG OXYGEN SATURATION 97.3 % (94.0-98.0); ABG PCO2 (T) 33.5 mmHg (35.0-48.0); ABG PH (T) 7.441 (7.350-7.450); ABG PO2 (T) 87.4 mmHg (83.0-108.0); ALLEN'S TEST POSITIVE; FCOHb 2.1 % (0.5-1.5); FHHb 2.6 % (0.0-5.0); FMetHb 0.3 % (0.0-1.5); MODE MASK - CPAP; PATIENT TEMPERATURE 36.4; TOTAL HEMOGLOBIN 14.8 G/dl (13.5-17.5)
[2025-05-15 07:05] LABS: CHOL/HDL RATIO 2.7 (0.00-4.99); CHOLESTEROL 123 MG/DL (0-200); HDL CHOLESTEROL 45 MG/DL (35-60); LDL CHOLESTEROL 62 MG/DL (50-100); TRIGLYCERIDES 45 MG/DL (20-135)
[2025-05-15] MEDS: amLODIPine 5mg tablet PO SCH (08:05)
[2025-05-15 08:29] LABS: HEMOGLOBIN A1C 5.4 % (4.5-6.2)
[2025-05-15] MEDS: hydrOXYzine 25 MG tablet PO PRN (13:16)
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
--- NOTE | 2025-05-15 18:43 | HISTORY AND PHYSICAL-Residence ---
History & Physical Providers to CC Resident Creating Document: CLAY BOYDJayme RHODESIS, RES ~ History of Present Illness Primary Medical Doctor: [facility] Reason for Admit\Complaint: Suicidal ideation. History of Present Illness 74-year-old male patient with past medical history of hypertension and dyslipidemia came to the hospital with chief complaint of suicidal ideation. The patient was admitted in mental health unit when the patient was evaluated for admission he was tearful, stating that he was about to suicide himself, feeling lot of anxiety. The patient stated that he woke up Friday in the morning and thought that he can not do this another day. He endorsed plan for suicide base in taking a lot of pills. The patient currently is not in acute distress. Denies any chest pain, shortness of breath, palpitations, urinary or intestinal symptoms. Allergies: Coded Allergies: atorvastatin (Verified Adverse Reaction, Intermediate, muscle pain, 01/03/24) simvastatin (Verified Adverse Reaction, Intermediate, muscle pain, 01/03/24) Home Medications Home Medications Active Reported Tobradex St Eye Drops (Tobramycin/Dexamethasone) 0.3 %-0.05 % Drops.susp 1 Drop LEFTEYE TID Norvasc (Amlodipine Besylate) 5 Mg Tablet 1 Tab PO DAILY Past Medical History Past Medical History Hypertension. Dyslipidemia. Past Surgical History Surgical History Comment None Family History Family History: FH: diabetes mellitus MOTHER, Onset:Unknown FAMILY/OTHER, Onset:Unknown FAMILY/OTHER, Onset:Unknown FH: stroke FATHER, Onset:60 years & older Past Social History Smoking: Quit greater than 1 year Alcohol Use: Rarely Drug Use: None Lives In: Home Occupation: retired ROS All Other Systems: Reviewed and Negative Exam Vitals: Vital Signs Date Time Temp Pulse Resp B/P (MAP) Pulse Ox O2 Delivery O2 Flow Rate FiO2 05/15/25 08:05 69 05/15/25 08:00 97.3 14 138/82 (100) 94 Room Air 05/15/25 03:56 25 05/14/25 13:20 0 Physical exam: General: Well alert, well oriented, not confused, not agitated, not in acute distress, well cooperated during the physical. HEENT: Conjunctive are pink, sclerae clear, no icterus, pupil is equal in both sides, reactive to light, no ear discharge, no pharyngeal erythema or an edema. Neck: Supple, no JVD, no lymphadenopathy and thyromegaly. Chest: Equal air entry on both lungs, no additional sounds no rhonchi no wheezing at the moment. Cardiovascular: S1-S2 regular sinus rhythm and, regular rate, no gallops, no rubs, no murmurs Abdomen: No visible peristalsis, Bowel sounds present on auscultation, soft, nontender, no guarding, no rigidity Extremities: No obvious deformities, no pitting edema bilaterally, capillary refill intact, peripheral pulsations are intact on both sides Central Nervous System: No focal neurological deficits, no motor or sensory weakness in all 4 extremities, could move all 4 extremities, 2+ deep tendon reflexes, negative Babinski. Musculoskeletal: No joint swelling, deformities, inflammations, and no scoliosis and back tenderness Skin: Warm and dry. Diagnostic Data Last Recorded Lab Results: 05/14/25 1423 05/14/25 1423 Additional Plan Assessment and plan: 74-year-old male patient admitted to mental health unit due to suicidal ideation. Suicidal ideation: Management as per psychiatrist. Hypertension: Current blood pressure 138/82 mmHg. Continue amlodipine 5 mg daily. Disposition: Hospitalist team will continue to monitor the patient. Wu Osborne Internal Medicine Resident [facility] Date of Service: May 15, 2025 Billing Provider: SUMMER GARCIA MD Common Visit Codes: [id number] INP/OBS CARE (LOW) WU BOYD, RES May 15, 2025 18:43 SUMMER GARCIA MD May 16, 2025 17:48
[2025-05-15] MEDS: chlorproMAZINE 25mg tablet PO PRN (21:38)
[2025-05-16] VITALS (8 sets, daily range): BP systolic 130–136; BP diastolic 81–84; PULSE 67–82; RESP 16–27; TEMP 97.9–98; O2SAT 96–98
[2025-05-16] MEDS ORDERED: LORazepam 1 MG tablet PO PRN (00:20)
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
[2025-05-16 17:29] LABS: CHOL/HDL RATIO 2.7 (0.00-4.99); CHOLESTEROL 118 MG/DL (0-200); HDL CHOLESTEROL 43 MG/DL (35-60); LDL CHOLESTEROL 59 MG/DL (50-100); TRIGLYCERIDES 73 MG/DL (20-135)
[2025-05-16] MEDS: magnesium hydroxide 30ml (MOM) UD suspension PO PRN (18:47)
[2025-05-16] MEDS: QUETIAPINE 50 MG TAB.SR.24H PO SCH (19:46)
[2025-05-16] MEDS: diazepam 5mg tablet PO SCH (19:46)
[2025-05-16] MEDS: traZODone 50mg tablet PO SCH (19:47)
[2025-05-16] MEDS: lithium carbonate 450mg CR tablet PO SCH (21:00)
[2025-05-16] MEDS ORDERED: traZODone 50mg tablet PO SCH (21:00)
[2025-05-17] VITALS (8 sets, daily range): BP systolic 111–152; BP diastolic 60–84; PULSE 58–83; RESP 16–18; TEMP 97.7–98.5; O2SAT 94–98
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
--- NOTE | 2025-05-17 16:59 | PROGRESS NOTE ---
Daily Progress Note Providers to CC ~ Antibiotic Timeout Antibiotic Ordered?: No Subjective This is the hospitalist progress note on patients hospitalized at [facility]. The patient is resting comfortably in bed alert has no acute medical complaints or concerns Objective Vital Signs Date Time Temp Pulse Resp B/P (MAP) Pulse Ox O2 Delivery O2 Flow Rate FiO2 05/17/25 08:37 71 16 94 Room Air* 0 21 05/17/25 07:00 97.7 111/60 (77) Result Diagram: 05/14/25 1423 05/14/25 1423 Gen. No acute distress alert and oriented Lungs clear to ascultation bilaterally, no wheezes rales or rhonchi appreciated Heart normal sinus rhythm no murmurs rubs or clicks noted Abdomen soft nontender bowel sounds are normoactive Lower extremities no clubbing cyanosis, nor edema appreciated bilaterally Problem\Assessment\Plan Problems/Diagnosis: (1) Suicidal ideation # depression/suicidal ideation On a 5150 hold Followed by Psychiatry # hypertension Blood pressure is under acceptable control Continue amlodipine The patient has no acute medical complaints or concerns The Hospitalist service will continue to follow the patient Date of Service: May 17, 2025 Billing Provider: ALEENA MATOS DO Common Visit Codes: [id number] INP/OBS CARE(LOW) ALEENA MATOS DO May 17, 2025 16:58
[2025-05-17] MEDS: QUETIAPINE 50 MG TAB.SR.24H PO SCH (19:38)
[2025-05-18 02:44] VITALS: PULSE 67; RESP 21; O2SAT 98
[2025-05-18 07:00] VITALS: BP 138/75; PULSE 72; RESP 17; TEMP 97.8; O2SAT 96
[2025-05-18 08:00] VITALS: RESP 17; O2SAT 96
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
[2025-05-18 19:00] VITALS: RESP 16; O2SAT 95
[2025-05-18 20:00] VITALS: BP 138/62; PULSE 84; RESP 16; TEMP 98.9; O2SAT 95
[2025-05-18] MEDS: QUETIAPINE 50 MG TAB.SR.24H PO SCH (20:14)
[2025-05-18 23:26] VITALS: PULSE 73; RESP 24; O2SAT 96
[2025-05-19 03:36] VITALS: PULSE 61; RESP 18; O2SAT 97
[2025-05-19 07:00] VITALS: RESP 16; O2SAT 98
[2025-05-19 07:30] VITALS: BP 139/82; PULSE 79; RESP 16; TEMP 97.8; O2SAT 98
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
[2025-05-19] MEDS ORDERED: TRAZ-256 PO (08:03)
[2025-05-19] MEDS ORDERED: QUET-28 PO (08:03)
[2025-05-19] MEDS ORDERED: lithium carbonate 450mg CR PO (08:03)
[2025-05-19 08:12] VITALS: BP_SYST 175; PULSE 62
--- NOTE | 2025-05-19 15:01 | PROGRESS NOTE ---
Daily Progress Note Providers to CC ~ Antibiotic Timeout Antibiotic Ordered?: No Subjective CC- NONE Objective Vital Signs Date Time Temp Pulse Resp B/P (MAP) Pulse Ox O2 Delivery O2 Flow Rate FiO2 05/19/25 08:12 62 05/19/25 07:30 97.8 16 139/82 (101) 98 Room Air 05/19/25 03:36 25 05/17/25 08:37 0 A & O X # NAD CVS 1 & 2 HS POS RRR NO M/R RESP-CTA B ABD-SOFT POS NT/ND BS POS NT/ND EXT NO C/C.E Problem\Assessment\Plan Problems/Diagnosis: (1) Suicidal ideation # depression/suicidal ideation On a 5150 hold Followed by Psychiatry # hypertension Blood pressure is under acceptable control Continue amlodipine The patient has no acute medical complaints or concerns The Hospitalist service will continue to follow the patient Date of Service: May 19, 2025 Billing Provider: CARSON FAUSTIN MD Common Visit Codes: [id number] INP/OBS CARE(LOW) CARSON FAUSTIN MD May 19, 2025 15:01
== END 2025-05-19 13:12 | disposition home or self-care (01) | DRG 885 ==
LOC: ER 13:20 → ADULT MH 22:40
PROVIDERS: ADMIT Psychiatry & Neurology Psychiatry; ATTEND Psychiatry & Neurology Psychiatry
PROC: GZHZZZZ Group Psychotherapy (ICD-10-PCS; principal; 2025-05-15)
PROC: GZ51ZZZ Individual Psychotherapy, Behavioral (ICD-10-PCS; 2025-05-15)
DX: F33.9 Major depressive disorder, recurrent, unspecified (principal); R45.851 Suicidal ideations; Z59.00 Homelessness unspecified; F41.9 Anxiety disorder, unspecified; Z20.822 Contact with and (suspected) exposure to COVID-19; I10 Essential (primary) hypertension; E78.00 Pure hypercholesterolemia, unspecified; Z87.891 Personal history of nicotine dependence; Z88.8 Allergy status to other drugs, medicaments and biological substances
CPT/HCPCS: 36415; 36600; 80048; 80061; 80178; 80305; 80320; 81003; 82803; 83036; 84443; 85018; 85025; 87081; 87811; 94660; 94760; 99285; Q0161; Q0177